=== PATIENT | male | born 1945 | race Caucasian/White ===

== ENCOUNTER → 2018-03-07 | Outpatient (CLI) | payer MEDICARE, OTHER ==
[2018-03-07 12:19] LABS: Basophils % (A) 1 %; Eosinophils # (A) 0.2 k/uL (0-0.7); Eosinophils % (A) 3 %; HCT 45.7 % (39.0-53.0); HGB 15.1 gm/dL (13.0-17.5); Lymphocytes # (A) 1.1 k/uL (1.0-4.8); Lymphocytes % (A) 20 %; MCH 30.3 pg (25.0-35.0); MCV 91.8 fL (80.0-100.0); Mean Platelet Volume 7.2; Monocytes # (A) 0.3 k/uL (0-1.0); Monocytes % (A) 6 %; Neutrophils # (A) 3.8 k/uL (1.3-7.7); Neutrophils % (A) 69 %; Platelet Count 157 k/uL (150-450); RBC 4.97 m/uL (4.30-5.90); RDW 13.5 % (11.5-15.5); WBC 5.5 k/uL (3.8-10.6)
[2018-03-07 12:23] LABS: INR 1.1 (<1.2); Prothrombin Time 10.4 sec (9.0-12.0)
[2018-03-07 12:29] LABS: Appearance,Urine Clear (Clear); Bilirubin,Urine Negative (Negative); Blood,Urine Negative (Negative); Color,Urine Yellow; Glucose,Urine (UA) Negative (Negative); Ketones,Urine Negative (Negative); Leukocyte Esterase,Urine Negative (Negative); Nitrite,Urine Negative (Negative); PH, Urine 5.5 (5.0-8.0); Protein,Urine Negative (Negative); Specific Gravity,Urine 1.019 (1.001-1.035); Urobilinogen,Urine <2.0 mg/dL (<2.0)
[2018-03-07 12:34] LABS: Calcium 8.6 mg/dL (8.4-10.2); Potassium 4.8 mmol/L (3.5-5.1)
--- NOTE | 2018-03-07 13:19 | XR ---
EXAMINATION TYPE: XR chest 2V DATE OF EXAM: 03/07/2018 COMPARISON: 03/13/2015 HISTORY: Preoperative evaluation. TECHNIQUE: Frontal and lateral views of the chest are obtained. FINDINGS: There is no focal air space opacity, pleural effusion, or pneumothorax seen. The cardiac silhouette size is within normal limits. The osseous structures are intact. Bilateral humeral arthr oplasties are present. Mild multilevel degenerative change of the thoracic spine is seen. IMPRESSION: No acute cardiopulmonary process.
== END | disposition home or self-care (01) ==
LOC: LABPAT 11:12
PROVIDERS: ATTEND Orthopaedic Surgery Orthopaedic Surgery of the Spine
DX: Z01.818 Encounter for other preprocedural examination (principal); Z01.812 Encounter for preprocedural laboratory examination; M48.061 Spinal stenosis, lumbar region without neurogenic claudication
CPT/HCPCS: 71046; 80048; 81003; 85025; 85610; 85730; 87070

== ENCOUNTER 2018-03-13 05:42 | Inpatient (IN) | payer MEDICARE, OTHER ==
[2018-03-06 13:14] VITALS: BMI 28.1
[~2018-03-13 05:42] MED LIST: BACITRACIN 50,000 UNIT, POLYMYXIN B 500,000 UNIT in SODIUM CHLORIDE 0.9% IRRIGATIO 1,00... IRRIGATION ONE; DEXAMETHASONE SOD PHOSPHATE 10 MG/ML 1 ML VIAL IV ONE; LIDOCAINE 1% 20 ML VIAL (10MG/ML) FOR IV START INTRADERMA PRN; MIDAZOLAM 2 MG/2 ML VIAL IV PRN; ONDANSETRON 4 MG/2 ML VIAL IVP ONE; ceFAZolin IN SWFI 2 GM/20 ML SYRINGE IVP ONE
[2018-03-13] MEDS ORDERED: fentaNYL (PF) 50 MCG/ML 2 ML AMP IV PRN (05:53)
[2018-03-13] MEDS ORDERED: ONDANSETRON 4 MG/2 ML VIAL IVP ONE (05:53)
[2018-03-13] MEDS ORDERED: LIDOCAINE 1% 20 ML VIAL (10MG/ML) FOR IV START INTRADERMA PRN (05:53)
[2018-03-13] MEDS ORDERED: MIDAZOLAM 2 MG/2 ML VIAL IV PRN (05:53)
[2018-03-13] MEDS ORDERED: DEXAMETHASONE SOD PHOSPHATE 10 MG/ML 1 ML VIAL IV ONE (05:53)
[2018-03-13] MEDS: LACTATED RINGERS 1,000 ML IV SCH ×3 (06:45→16:37)
[2018-03-13] MEDS ORDERED: ePHEDrine SULFATE/0.9% NACL/PF 50 MG/5 ML SYRINGE IV ONE (07:33)
[2018-03-13] MEDS ORDERED: ROCURONIUM BROMIDE 10 MG/ML 10 ML VIAL IV ONE (07:33)
[2018-03-13] MEDS ORDERED: HYDROmorphone (PF) 1 MG/ML ONE (07:33)
[2018-03-13] MEDS ORDERED: PROPOFOL 10 MG/ML 20 ML VIAL IV ONE (07:33)
[2018-03-13] MEDS ORDERED: fentaNYL (PF) 50 MCG/ML 2 ML AMP ONE (07:33)
[2018-03-13] MEDS ORDERED: MIDAZOLAM 2 MG/2 ML VIAL ONE (07:33)
[2018-03-13] MEDS ORDERED: GLYCOPYRROLATE 0.2 MG/ML 2 ML VIAL ONE (07:33)
[2018-03-13] MEDS ORDERED: SUCCINYLCHOLINE CHLORIDE 100 MG/5 ML SYR IV ONE (07:33)
[2018-03-13] MEDS ORDERED: LIDOCAINE 1% INJ 10MG/ML (20 ML MDV) ONE (07:33)
[2018-03-13] MEDS ORDERED: PHENYLEPHRINE-0.9% NACL SYG 1 MG/10 ML SYRINGE ONE (07:33)
[2018-03-13] MEDS ORDERED: LACTATED RINGERS 1,000 ML IV ONE ×2 (08:10→11:45)
[2018-03-13] MEDS ORDERED: THROMBIN (BOVINE) 5,000 UNIT VIAL MISCELLANE ONE (08:30)
[2018-03-13] MEDS ORDERED: BUPIVACAIN-EPI 0.5%-1:200,000 30 ML VIAL SQ ONE (08:31)
[2018-03-13] MEDS ORDERED: GELATIN SPONGE,ABSORB (LARGE) 1 EACH SPONGE MISCELLANE ONE (08:31)
[2018-03-13] MEDS ORDERED: MAGNESIUM HYDROXIDE 2,400 MG/10 ML CUP PO PRN (11:56)
[2018-03-13] MEDS ORDERED: BENZOCAINE/MENTHOL LOZENG 1 EACH LOZENGE MUCOUS MEM PRN (11:56)
[2018-03-13] MEDS ORDERED: HYDROcodone/APAP 5-325MG 1 EACH TAB PO PRN (11:56)
[2018-03-13] MEDS ORDERED: ZOLPIDEM 10 MG TAB PO PRN (11:58)
--- NOTE | 2018-03-13 12:07 | P.OP ---
Date of Procedure: 03/13/18 Preoperative Diagnosis: Spondylolisthesis L4 5, severe spinal stenosis L3 4 L4 5, degenerative disc disease, degenerative scoliosis, low back pain with lower extremity radiculopathy, neurogenic claudication, Postoperative Diagnosis: Same Anesthesia: GETA Pathology: none sent Condition: stable Disposition: PACU Description of Procedure: DESCRIPTION OF PROCEDURE(S): BRIEF OPERATIVE NOTE Preoperative Diagnosis: Spondylolisthesis L4 5, severe spinal stenosis L3 4 L4 5 , degenerative scoliosis, degenerative disc disease, low back pain with lower extremity radiculopathy, neurogenic claudication, Postoperative Diagnosis: Same Procedure: Laminectomy and decompression L3 4 L4 5 with foraminotomies and facetectomy Minimally invasive Posterior lateral decompression and facet fusion L3 4 L4 5 Minimally invasive Transforaminal lumbar interbody fusion for a 360 fusion L4 5 Discectomy for decompression L4 5 Placement of interbody graft L4 5 Local autogenous bone grafting Harvesting of bone marrow aspirate be of the pedicle of L3 on the right Use of Cell Saver Use of bone graft extenders Surgeon: Dr. Chiu Product Test Specialist: Marcin Pang is present throughout the entire the case persistence during positioning, dissection, exposure, visualization, and all crucial elements of the case as well as closure. Anesthesia: General anesthesia Estimated blood loss: Approximately 450 mL with 200 given back through Cell Saver Complications: None apparent Components implanted: K2M minimally invasive [place] pedicle screw system with 6 screws measuring 6.5 mm x 50 mm and 2 rods and 1 mm peek cage with 1 osteoamp sponge and 15 mL of DBX bone fibers to supplemental local otitis bone graft and bone marrow aspirate Disposition: To recovery room in good stable condition. OPERATIVE INDICATIONS The patient has had long-standing issues in their lower back and lower extremities. His found have degenerative scoliosis with spondylolisthesis and severe spinal stenosis which correlated well with his low back and lower extremity symptoms. He is having radiculopathy with neurogenic claudication and severe back pain which was worsening despite conservative care. The patient has been through conservative treatment. We discussed various treatment options including surgery, and the patient wishes to proceed with surgery We discussed the risk, patient's alternatives and benefits of surgery including but not limited to, risk of bleeding risk of infection, risk of need for further surgery, risk of decreased, loss of motion, muscle function, malunion nonunion, hardware failure, nerve damage, paralysis, heart attack, blindness and . OPERATIVE SUMMARY After discussing all the risks, patient alternatives and benefits at length, the patient elected to proceed with surgical intervention, signed informed consent, and presented for their procedure. The patient was seen and examined in the preoperative holding area and the surgical site was marked. The patient was given antibiotics and brought to the operating room. The patient was sedated and intubated by anesthesia in standard fashion. The patient was positioned on to the operating room table in a prone position on the appropriate frame which was well-padded and well molded. We were careful to pad any bony prominences and pressure points. We were careful to maintain the patient's cervical spine and good neutral alignment and position throughout. The patient was prepped and draped in a normal standard fashion. An appropriate timeout and keystone protocol performed. We were able to proceed with the surgery. The local wound area was infiltrated with local anesthetic. I was able utilize C-arm guidance to establish appropriate position over the pedicles bilaterally at the appropriate levels at L3 4 and 5. With the appropriate levels confirmed was able to make small stab incisions over the appropriate pedicle sites bilaterally. Utilizing C-arm in his house able to establish a Jamshidi needle over the lateral aspect of the pedicle and advanced the trocar into the pedicle being careful not to breech superiorly inferiorly medially or laterally. Position was confirmed regularly with AP and lateral images on C-arm. I was able to establish the trocar into the pedicle appropriately into the posterior aspect of the vertebral body bilaterally at the appropriate levels. This was done at each of the pedicle positions and each of the vertebrae. I was able place the guidewire into the trocar and into the vertebral body appropriately under C-arm guidance. Dissection was taken down over the wire to the appropriate starting position for the screw placed. The appropriate length screw was chosen, threaded over the guidewire and screwed appropriately into the pedicle and vertebral body under C-arm guidance in excellent alignment and position with good bony purchase. This is done at each of the screw sites at the appropriate levels at L3 4 and 5. With the screws intact I extended the incision to connect the screw hole sites on the most symptomatic side on the right. I dissected down to establish access over the pars and lamina to the base of the spinous process. I was able to expose the facet joint. The capsule the facet was taken down and showed some facet arthrosis at the joint. I was able to use a combination of curettes and Kerrison rongeurs and a high-speed drill to take down the facet joint and do a facetectomy. I started at L4-L5 and then moved L3 4. Partial laminectomy was also performed. I was able get excellent foraminal decompression and central decompression with undermining across midline to perform a laminectomy centrally and contralaterally. As able get good central decompression. The ligamentum flavum was taken down to further decompress centrally and at bilateral neural foramen. I was able to expose the disc space and visualize the traversing nerve root. At L4 5 I was able to establish the space of the disc at L4 5. At L3 4 there was bridging osteophyte and noted space and I was not able to access the disc space. At L4 5 Note was made of some disc protrusion at the level causing further compression of the nerve root. I was able to establish a annulotomy at the appropriate level protecting soft tissue and neural structures. Note was made of some disc desiccation at the disc. I performed a complete discectomy with accommodation of curettes and rasps and scrapers. I was able get good endplate preparation at the disc space. I sized for the appropriate size interbody spacer protecting the soft tissue and neural structures. The wound was copiously irrigated and suctioned dry. There is no evidence of any dural tear or leak. I was able to pack the disc space with local autogenous bone graft as well as a small amount of bone graft which was also placed into the interbody cage itself. Protecting the soft tissue structures and neural structures I was able place the interbody cage in good alignment and good position with good fit and fill at the interbody space. His issues was confirmed with C-arm guidance. I performed a interbody fusion at L4 5 but was unable to access the interbody space at L3 [address] and I did not place any his rotation of the interbody space L3 4. I felt we can get good posterior deep decompression and fusion at L3 4 and L4 5. Good hemostasis maintained. There is no evidence of any dural tear or leak. The wound was irrigated and suctioned dry. With the hardware intact, intraoperative C-arm imaging was again taken which showed good alignment and position of the hardware at the appropriate levels at L3 4 and 5 . We were then able to measure, contour and place the rods and appropriate hardware bilaterally. I was able to place capcrews, tighten them down, and torque them with the torque screwdriver appropriately. With this intact I was able to place the local autogenous bone graft with additional bone graft enhancer as necessary into the posterior lateral gutters over the decorticated transverse processes. The remainder of the bone graft was placed over the facet joint on the contralateral side after taking down the facet joint capsule. With the bone graft intact, a stable construct, and good decompression at the appropriate levels, of L3 4 and L4 5we were able to proceed with closure. Good hemostasis was maintained. There is no evidence of dural tear or leak. The fascia was closed for a watertight closure. he subcuticular tissue was closed with absorbable suture. The wound was cleaned and dried and dressed with the appropriate dressing. The drapes were broken down. The patient was gently rolled back onto their hospital bed being careful to maintain their cervical spine and good neutral alignment and position. They were woken up by anesthesia, extubated, and brought to the recovery room in good stable condition. The patient will be admitted to the hospital for appropriate postoperative care , medical management and monitoring. We will continue to follow them closely about the postoperative course.
--- NOTE | 2018-03-13 12:53 | FL ---
Fluoroscopy HISTORY: Lumbar fusion 2 minutes 45 seconds fluoroscopy time supplied to the referring clinician. 2 intraoperative C-arm im ages document the procedure. See dictated report from orthopedic surgery.
[2018-03-13] MEDS: fentaNYL (PF) 50 MCG/ML 2 ML AMP IV PRN ×3 (13:05→14:02)
[2018-03-13] MEDS: HYDROmorphone 0.5 MG/0.5 ML SYRINGE IVP PRN ×2 (14:52→21:10)
[2018-03-13] MEDS: HYDROcodone/APAP 5-325MG 1 EACH TAB PO PRN ×2 (15:50→20:36)
[2018-03-13] MEDS ORDERED: BACLOFEN 10 MG TAB PO PRN (17:01)
[2018-03-13] MEDS: ceFAZolin IN SWFI 2 GM/20 ML SYRINGE IVP SCH (17:26)
[2018-03-13] MEDS: SODIUM CHLORIDE 0.9% 1,000 ML IV SCH (18:40)
[2018-03-13] MEDS: ONDANSETRON 4 MG/2 ML VIAL IVP PRN (19:37)
[2018-03-13] MEDS ORDERED: ALBUTEROL NEBULIZED 2.5 MG/3 ML INHALATION PRN (21:49)
--- NOTE | 2018-03-13 22:21 | CONS ---
CONSULTATION DATE OF SERVICE: 03/13/2018. REASON FOR CONSULTATION: Advice regarding GERD, hypertension, DJD being requested by Dr. Chiu. HISTORY OF PRESENT ILLNESS: This 72-year-old gentleman with a past medical history of hypertension, DJD, history of prostate disease, history of GERD, history of anxiety being followed by Dr. Hollingsworth in the outpatient setting, underwent laminectomy decompression L3-4, 4-5 with a foraminectomy and facetectomy for severe spondylosis L4-5, severe spinal stenosis L3-4, L4-[address] Chiu. The patient complains of back pain and leg pain at this time. Otherwise there is no history of any fever, rigors. No history of any headache, loss of consciousness, seizures. Patient also complains of some groin pain also. No history of any nausea, vomiting, diarrhea at this time. PAST MEDICAL HISTORY: History of hypertension, DJD, history of prostate disorder, history of hypothyroidism, hernia repair. MEDICATIONS PRIOR TO ADMISSION: Include home medications are: 1. Ambien 10 mg p.o. q.h.s. p.r.n. 2. Flomax 0.4 daily. 3. Ditropan XL 15 mg b.i.d. 4. Omeprazole 20 mg p.o. daily. 5. Singulair 10 mg p.o. daily. 6. Mobic 15 mg p.o. daily. 7. Levoxyl 100 mg p.o. daily. 8. Neurontin 300 mg p.o. t.i.d. 9. Proscar 5 mg p.o. daily. 10.Rocaltrol 0.5 mg daily. 11.Tenormin 25 mg p.o. daily. 12.Aspirin 320 mg. 13.Ventolin 2.5 every 6 hours p.r.n. ALLERGIES: None. FAMILY HISTORY: History of myocardial infarction in the family. SOCIAL HISTORY: No history of smoking. Occasional alcohol intake. REVIEW OF SYSTEMS: ENT: No diminished hearing, diminished vision. CARDIOVASCULAR: No angina, palpitations. RESPIRATORY: No cough or hemoptysis. GI: No nausea or vomiting. : No dysuria. NERVOUS: No numbness or weakness. ALLERGY/IMMUNOLOGY: No asthma or hay fever. MUSCULOSKELETAL: As mentioned earlier. HEMATOLOGY/ONCOLOGY: No history of anemia. ENDOCRINE: No history of diabetes, hypothyroidism. CONSTITUTIONAL: As mentioned earlier. DERMATOLOGY: Negative. RHEUMATOLOGY: Negative. PSYCHIATRY: As mentioned earlier. PHYSICAL EXAMINATION: Alert, oriented x3. Pulse 80, blood pressure 150/98, respirations 16, temperature 97.6, pulse ox 92% on room air. HEENT: Conjunctivae normal. Oral mucosa moist. NECK: No jugular venous distention. No carotid bruits. No lymph node enlargement. CARDIOVASCULAR: S1, S2 muffled. RESPIRATORY: Breath sounds diminished in the bases. No rhonchi. No crackles. ABDOMEN: Soft, nontender. LEGS: No edema. NERVOUS SYSTEM: No focal deficits. BACK: Status post surgery. LABS: CBC, BMP, the preop within normal limits. ASSESSMENT: 1. Status post laminectomy decompression L3-4, L4-5 for severe spondylosis L4-5 with severe spinal stenosis L3-4 and L4-5. 2. Gastroesophageal reflux disease. 3. Hypertension. 4. History of degenerative joint disease. 5. History of hypothyroidism. 6. History of stomach ulcer. 7. Hernia surgery. RECOMMENDATIONS AND DISCUSSION: In this 72-year-old gentleman who presented after surgery. At this time, I recommend to continue current medical management and symptomatic treatment. Otherwise, resume the home medications. I would also recommend proton pump inhibitors. Otherwise, incentive spirometry, DVT prophylaxis. We will follow the patient closely with you. Pain management per Orthopedics and Anesthesia and further recommendations to follow. MMENDY / NEILN: [id number] /
[2018-03-13] MEDS: GABAPENTIN 300 MG CAP PO SCH (22:25)
[2018-03-14] MEDS: ceFAZolin IN SWFI 2 GM/20 ML SYRINGE IVP SCH (00:25)
[2018-03-14] MEDS: HYDROmorphone 1 MG/ML 1 ML SYRINGE IVP PRN ×7 (00:25→23:39)
[2018-03-14] MEDS: HYDROcodone/APAP 5-325MG 1 EACH TAB PO PRN ×3 (02:32→10:06)
[2018-03-14] MEDS: LACTATED RINGERS 1,000 ML IV SCH (04:21)
[2018-03-14] MEDS: SODIUM CHLORIDE 0.9% 1,000 ML IV SCH ×2 (04:21→16:57)
[2018-03-14] MEDS: LEVOTHYROXINE 100 MCG TAB PO SCH (05:45)
[2018-03-14 07:12] LABS: Basophils % (A) 0 %; Eosinophils % (A) 0 %; HCT 41.2 % (39.0-53.0); HGB 13.6 gm/dL (13.0-17.5); Lymphocytes # (A) 0.5 k/uL (1.0-4.8); Lymphocytes % (A) 5 %; MCH 30.5 pg (25.0-35.0); MCV 92.4 fL (80.0-100.0); Mean Platelet Volume 7.4; Monocytes # (A) 0.7 k/uL (0-1.0); Monocytes % (A) 6 %; Neutrophils # (A) 10.1 k/uL (1.3-7.7); Neutrophils % (A) 89 %; Platelet Count 130 k/uL (150-450); RBC 4.46 m/uL (4.30-5.90); RDW 13.4 % (11.5-15.5); WBC 11.4 k/uL (3.8-10.6)
[2018-03-14 07:23] LABS: Calcium 7.8 mg/dL (8.4-10.2); Potassium 4.1 mmol/L (3.5-5.1)
[2018-03-14] MEDS ORDERED: PANTOPRAZOLE 40 MG TABLET PO SCH (07:30)
--- NOTE | 2018-03-14 07:57 | XR ---
EXAMINATION TYPE: XR lumbar spine 2 or 3V DATE OF EXAM: 03/13/2018 COMPARISON: None HISTORY: Lumbar fusion TECHNIQUE: Fluoroscopy FINDINGS: 2 minutes 45 seconds of fluoroscopy time was provided for procedure. 2 images are obtained. IMPRESSION: 1. Fluoroscopy documentation
[2018-03-14] MEDS: ATENOLOL 25 MG TAB PO SCH (08:22)
[2018-03-14] MEDS: MONTELUKAST 10 MG TAB PO SCH (08:22)
[2018-03-14] MEDS: TAMSULOSIN 0.4 MG CAP.ER.24H PO SCH (08:22)
[2018-03-14] MEDS: SENNOSIDES-DOCUSATE SODIUM 1 EACH TAB PO SCH (08:22)
[2018-03-14] MEDS: GABAPENTIN 300 MG CAP PO SCH ×3 (08:22→22:53)
[2018-03-14] MEDS: ASPIRIN 325 MG TAB PO SCH (08:22)
[2018-03-14] MEDS: FINASTERIDE 5 MG TAB PO SCH (08:22)
[2018-03-14] MEDS: CALCITRIOL 0.25 MCG CAP PO SCH (10:07)
[2018-03-14] MEDS: OXYBUTYNIN 15 MG TAB.ER.24 PO SCH (10:09)
[2018-03-14] MEDS: ONDANSETRON 4 MG/2 ML VIAL IVP PRN ×2 (11:02→15:58)
--- NOTE | 2018-03-14 11:05 | P.PN ---
Progress Note - Text Progress Note Date: 03/14/18 Postoperative day #1 Patient is seen and examined today at bedside. The patient has some pain around the surgical site as expected. Pain is being controlled with medication. He has been up to the bathroom is able to void. His pain is controlled with medication. He had some nausea but no vomiting. Physical Exam Afebrile with stable vital signs Abdomen is soft nontender. Chest has good excursion deep and space expiration The incision site is clean dry and intact. No erythema there is no purulence. There was some small bloody drainage on his dressing but there is no active drainage. There is some mild swelling but no tension at the area Extremities have not had neurologic change from prior to surgery. He has sustained dorsal flexion plantar flexion and EHL intact Calves and thighs were soft nontender without evidence of DVT. Assessment/Plan Postoperative day 1 status post decompression and fusion done minimally invasive at L34 and L4 5 for his severe spinal stenosis with degenerative scoliosis and spondylolisthesis Patient is progressing as expected from the surgery. he has already been up out of bed to the bathroom. There is some mild swelling but his back looks very stable. We will see if he has some benefit with a cold pack for his back for pain We will continue to increase the patient's mobilization with therapy. We will continue pain control with oral or IV medications. We'll continue to follow patient closely.
--- NOTE | 2018-03-14 13:18 | XR ---
EXAMINATION TYPE: XR abdomen 2V DATE OF EXAM: 03/14/2018 COMPARISON: None INDICATION: Postsurgical lumbar surgery, abdominal distention TECHNIQUE: Two view abdomen upright view and supine view FINDINGS: There is prominent air-filled colon within the abdomen. Correlate for colonic ileus. Suspicious air-f luid levels are not identified. No free air is evident. Psoas margins are normal. No organomegaly is present. Pedicles are present L4 L5 S1 levels. Changes are at left hip. No mass effect is evident. Organomegal y. Air-filled colon anterior to the liver. IMPRESSION: 1. Prominent colonic bowel gas. Correlate for colonic ileus
[2018-03-14] MEDS ORDERED: METOCLOPRAMIDE 5 MG/ML 2 ML VIAL IVP PRN (16:17)
[2018-03-14] MEDS ORDERED: HYDROmorphone 1 MG/ML 1 ML SYRINGE IVP PRN ×2 (16:19)
--- NOTE | 2018-03-14 16:48 | PN ---
PROGRESS NOTE DATE OF SERVICE: 03/14/2018 This 72 -year-old gentleman who was admitted with laminectomy and decompression is improving significantly. No chest pain. No palpitations. No fever. PHYSICAL EXAM: Alert and oriented times three. Pulse 89, blood pressure 115/66, respiration 18, temperature 98 degrees, pulse ox 93 percent on room air. HEENT: Conjunctivae normal. Oral mucosa moist. Neck is no jugular venous distention. No carotid bruit. No lymph node enlargement. Cardiovascular: S1, S2 muffled. RESPIRATORY: Breath sounds diminished in the bases. A few scattered rhonchi. ABDOMEN: Soft, nontender. Legs no edema. No swelling. Back: Status post surgery. LABS: WBC 7.4, platelets 130, calcium 7.8. ASSESSMENT: 1. Status post laminectomy decompression L3-4, L4-5 for severe spondylosis, spondylolisthesis L4-5 with severe spinal stenosis, L3-4 and L4-5. 2. Gastroesophageal reflux disease. 3. Hypertension. 4. Increased WBC, reactive. 5. Thrombocytopenia mild. 6. History of degenerative joint disease. 7. History of hypothyroidism. 8. Stomach ulcer. 9. History of hernia surgery. RECOMMENDATIONS AND DISCUSSION: Continue current medications, management and symptomatic treatment. Otherwise, at this time, I recommend continue the pain medications, continue with symptomatic treatment. I recommend repeat labs and monitor the platelets closely. Otherwise, continue the DVT prophylaxis. Continue with incentive spirometry. Closely follow with Orthopedic surgery. The rest of the recommendations per Orthopedic surgery. MMODL / IJN: [id number] /
[2018-03-14] MEDS ORDERED: POLYETHYLENE GLYCOL 3350 17 GM POWD.PACK PO STA (19:08)
[2018-03-14] MEDS ORDERED: SENNOSIDES 8.6 MG TAB PO PRN ×2 (19:11→22:49)
[2018-03-14] MEDS: PANTOPRAZOLE 40 MG/10 ML VIAL IVP SCH (20:42)
[2018-03-14] MEDS ORDERED: SODIUM CHLORIDE 0.9% 1,000 ML IV ONE (23:38)
[2018-03-15] MEDS: HYDROmorphone 1 MG/ML 1 ML SYRINGE IVP PRN ×5 (01:56→21:21)
[2018-03-15] MEDS: SODIUM CHLORIDE 0.9% 1,000 ML IV SCH ×2 (03:10→15:38)
[2018-03-15] MEDS: LACTATED RINGERS 1,000 ML IV SCH ×2 (03:10→12:07)
[2018-03-15] MEDS: LEVOTHYROXINE 100 MCG TAB PO SCH (05:22)
[2018-03-15 07:45] LABS: Basophils % (A) 0 %; Eosinophils % (A) 0 %; HCT 38.8 % (39.0-53.0); Lymphocytes # (A) 0.6 k/uL (1.0-4.8); Lymphocytes % (A) 4 %; MCHC 33.5 g/dL (31.0-37.0); MCV 92.6 fL (80.0-100.0); Mean Platelet Volume 7.2; Monocytes # (A) 0.8 k/uL (0-1.0); Monocytes % (A) 6 %; Neutrophils # (A) 11.6 k/uL (1.3-7.7); Neutrophils % (A) 88 %; Platelet Count 123 k/uL (150-450); RBC 4.19 m/uL (4.30-5.90); RDW 13.4 % (11.5-15.5); WBC 13.2 k/uL (3.8-10.6)
[2018-03-15] MEDS: SENNOSIDES-DOCUSATE SODIUM 1 EACH TAB PO SCH (08:31)
[2018-03-15] MEDS: ATENOLOL 25 MG TAB PO SCH (08:31)
[2018-03-15] MEDS: PANTOPRAZOLE 40 MG/10 ML VIAL IVP SCH ×2 (08:31→21:22)
[2018-03-15] MEDS: TAMSULOSIN 0.4 MG CAP.ER.24H PO SCH (08:31)
[2018-03-15] MEDS: FINASTERIDE 5 MG TAB PO SCH (08:31)
[2018-03-15] MEDS: GABAPENTIN 300 MG CAP PO SCH ×3 (08:31→21:22)
[2018-03-15] MEDS: OXYBUTYNIN 15 MG TAB.ER.24 PO SCH (08:31)
[2018-03-15] MEDS: MONTELUKAST 10 MG TAB PO SCH (08:31)
[2018-03-15] MEDS: CALCITRIOL 0.25 MCG CAP PO SCH (08:31)
[2018-03-15] MEDS: ASPIRIN 325 MG TAB PO SCH (08:31)
--- NOTE | 2018-03-15 08:39 | P.PN ---
Progress Note - Text Progress Note Date: 03/15/18 Orthopedic Spine: Patient is a pleasant 72-year-old male who is seen and examined at the bedside following posterior lateral decompression and fusion performed Sunday. Patient was able to increase ambulation early but has decreased his ambulation since yesterday after being diagnosed with constipation and possible colonic ileus. He was having some abdominal pain yesterday afternoon and an x-ray of the abdomen and pelvis was performed which showed prominent colonic bowel gas and correlate for colonic ileus. Patient states he does not usually have difficulty having a bowel movement or with his abdomen. He continues to have significant abdominal pain. Medicine has been treating the patient and has altered his diet. They have also added milk of magnesia and Senokot. Patient states he has not had a bowel movement and is not currently passing gas. He feels abdominal pain and distention. He is not currently receiving oral pain medications. He continues to receive Dilaudid IV as prescribed as needed symptoms. He has had some nausea this morning as well. Currently does not complain of vomiting, fever, or chills. Physical Exam Lumbar Fusion: Status post surgical day number 2 Patient is awake, alert, and oriented 3 Vital signs stable Good chest excursion with deep inspiration and expiration Abdomen firm and distended with some pain with palpation Dorsiflexion, plantarflexion, and extensor hallucis longus positive sustained bilaterally No signs or symptoms of DVT; no calf pain; pneumatic cuffs intact bilateral lower extremities Dressing is dry and intact with some dried blood over the incision sites greater on the left than the right; no erythema, purulence, or signs of infection Neurovascularly intact bilaterally lower extremities Pertinent studies: X-rays the abdomen taken on 03/14/2018: Prominent air-filled: Within the abdomen correlate for colonic ileus; no evidence of free air; evidence of pedicle screws at L3-4 and L4-5 Assessment: Minimally invasive posterior lateral decompression and fusion L3-4 and L4-5 Transforaminal lumbar interbody fusion L4-5 Low back pain Constipation Abdominal pain and distention Plan: 1. Ambulate as tolerated; work with Physical Therapy to increase mobilization 2. Continue pain control with IV medications; oral pain medications will be held until patient's abdominal pain and distention improves 3. Telfa and Tegaderm to remain intact 4. Medical management can continue to manage patient for patient's other medical issues including abdominal pain and distention with constipation 5. We will continue to follow the patient closely; if the patient is able to improve in regards to his abdominal pain and distention with constipation and makes improvement in regards to his lumbar spine postoperatively, we may plan for discharge home over the weekend 6. Patient can follow-up with Marcin Sabillon PA-C or Dr. Mauro Chiu at [facility] in 2-3 weeks following discharge
[2018-03-15 14:34] LABS: Albumin 3.1 g/dL (3.5-5.0); Calcium 7.6 mg/dL (8.4-10.2); Magnesium 1.6 mg/dL (1.6-2.3); Potassium 3.7 mmol/L (3.5-5.1); Total Bilirubin 0.9 mg/dL (0.2-1.3); Total Protein 5.8 g/dL (6.3-8.2)
[2018-03-15] MEDS ORDERED: BISACODYL 10 MG SUPP RECTAL STA (14:43)
--- NOTE | 2018-03-15 14:53 | P.GSCN ---
<Shana Garcia Meli - Last Filed: 03/15/18 14:46> History of Present Illness Consult date: 03/15/18 Reason for Consult: Abdominal pain possible ileus postop History of present illness: Pleasant 72-year-old gentleman being seen by surgical service at the request of the attending after patient developed difficulty having a bowel movement postop developed constipation with an abdominal x-ray suggestive of an ileus patient stated that he has had prior surgeries has never developed constipation. Constipation is not a problem at home. Does state that his last bowel movement was probably a week ago patient's past medical history hypertension, prostate disease, esophageal reflux, anxiety. Severe Spinal stenosis . Patient is postop laminectomy decompression L3 L4 L5 surgery was done on the 13 of March patient is being given a stool softener MiraLAX with no results. Patient states he's passing gas rectally but no stool Review of Systems Essentially unremarkable except as mentioned in the present illness Past Medical History Past Medical History: GERD/Reflux, Hypertension, Osteoarthritis (OA), Prostate Disorder, Thyroid Disorder Additional Past Medical History / Comment(s): hx bleeding stomach ulcer, "arrhthymia" History of Any Multi-Drug Resistant Organisms: None Reported Past Surgical History: Hernia Repair, Orthopedic Surgery, Tonsillectomy Additional Past Surgical History / Comment(s): bilat shoulders replacements, bilat knees replacement, thyroid removed, sinus surgery Past Anesthesia/Blood Transfusion Reactions: Previous Problems w/ Anesthesia Additional Past Anesthesia/Blood Transfusion Reaction / Comm: slow to wake up and n/v after sinus surgery Past Psychological History: No Psychological Hx Reported Smoking Status: Never smoker Past Alcohol Use History: Occasional Past Drug Use History: None Reported - Past Family History Brother(s) Family Medical History: Myocardial Infarction (NH) Medications and Allergies Home Medications Medication Instructions Recorded Confirmed Type Aspirin 325 mg PO DAILY 03/13/15 03/13/18 History Atenolol [Tenormin] 25 mg PO DAILY 03/13/15 03/13/18 History Meloxicam [Mobic] 15 mg PO DAILY 03/13/15 03/13/18 History Montelukast [Singulair] 10 mg PO DAILY 03/13/15 03/13/18 History Oxybutynin Chloride [Ditropan XL] 15 mg PO DAILY 03/13/15 03/13/18 History Tamsulosin HCl [Flomax] 0.4 mg PO DAILY 03/13/15 03/13/18 History Zolpidem [Ambien] 10 mg PO HS PRN 03/13/15 03/13/18 History Calcitriol [Rocaltrol] 0.5 mcg PO DAILY 03/06/18 03/13/18 History Finasteride [Proscar] 5 mg PO DAILY 03/06/18 03/13/18 History Gabapentin [Neurontin] 300 mg PO TID 03/06/18 03/13/18 History Levothyroxine Sodium [Levoxyl] 100 mcg PO DAILY 03/06/18 03/13/18 History Omeprazole 20 mg PO DAILY 03/06/18 03/13/18 History Albuterol Nebulized [Ventolin 2.5 mg INHALATION RT-Q6H PRN 03/13/18 03/13/18 History Nebulized] Allergies Allergy/AdvReac Type Severity Reaction Status Date / Time No Known Allergies Allergy Verified 03/13/18 12:10 Surgical - Exam Vital Signs Temp Pulse Resp BP Pulse Ox 980 F H 68 18 133/76 95 03/13/18 06:23 03/13/18 06:23 03/13/18 06:23 03/13/18 06:23 03/13/18 06:23 GENERAL APPEARANCE: 72-year-old male patient is alert, oriented, in no acute distress. Resting in bed states has been up ambulating with a walker VITAL SIGNS: Reviewed HEENT: Head is normocephalic and atraumatic. Pupils are equal and reactive. The nares are patent. Oropharynx is clear without lesions. NECK: Supple without lymphadenopathy. Traches midline. HEART: S1, S2. Regular rate and rhythm. No murmur noted denying chest pain LUNGS: No crackles or wheezes are heard. Adequate air movement bilaterally on room air ABDOMEN: Soft, mildly distended with diffuse tenderness a few active bowel sounds. No peritoneal signs. No palpable organomegaly or masses. EXTREMITIES: Normal skin color and turgor. No cyanosis, rash, ulceration, clubbing or edema. Radial pedal pulses are 2/4 bilaterally. Venodyne's on to the lower extremity NEUROLOGICAL: No focal deficits. Strength and sensation are grossly intact. Results - Labs 03/15/18 07:14 03/15/18 07:14 Abnormal Lab Results - Last 24 Hours (Table) 03/15/18 Range/Units 07:14 WBC 13.2 H (3.8-10.6) k/uL RBC 4.19 L (4.30-5.90) m/uL Hct 38.8 L (39.0-53.0) % Plt Count 123 L (150-450) k/uL Neutrophils # 11.6 H (1.3-7.7) k/uL Lymphocytes # 0.6 L (1.0-4.8) k/uL Assessment and Plan Assessment: Impression Chronic lower back pain Postop March 13 laminectomy decompression L3 L4 L5 with foraminotomies Severe spinal stenosis Leukocytosis suspect reactive Esophageal reflux disease Thrombocytopenia mild history of a hernia repair X-ray postop March 19 prominent air-filled correlate for colonic ileus no evidence of free air Postop constipation with abdominal x-ray suggestive of an ileus Postop urinary retention expected outcome likely due to anesthesia and BPH History of BPH Plan No evidence of an acute surgical abdomen at this time Dulcolax suppository rectal times once now Reglan 10 IV every 6 hours until stooling since stopped Continue MiraLAX and stool softener as ordered Increase activity per orthopedic guideline Will follow with you Surgical consultation note dictated for Dr. Castellano The above impression and plan of care have been discussed and directed by signing physician. Shana Garcia nurse practitioner acting as scribe for signing physician. <Anni Coates N - Last Filed: 03/15/18 19:41> Surgical - Exam Vital Signs Temp Pulse Resp BP Pulse Ox 980 F H 68 18 133/76 95 03/13/18 06:23 03/13/18 06:23 03/13/18 06:23 03/13/18 06:23 03/13/18 06:23 Results - Labs 03/15/18 07:14 03/15/18 07:14 Abnormal Lab Results - Last 24 Hours (Table) 03/15/18 03/15/18 03/15/18 Range/Units 07:14 07:14 19:00 WBC 13.2 H (3.8-10.6) k/uL RBC 4.19 L (4.30-5.90) m/uL Hct 38.8 L (39.0-53.0) % Plt Count 123 L (150-450) k/uL Neutrophils # 11.6 H (1.3-7.7) k/uL Lymphocytes # 0.6 L (1.0-4.8) k/uL Sodium 135 L (137-145) mmol/L Glucose 127 H (74-99) mg/dL Calcium 7.6 L (8.4-10.2) mg/dL Total Protein 5.8 L (6.3-8.2) g/dL Albumin 3.1 L (3.5-5.0) g/dL Urine Protein 1+ H (Negative) Urine Blood Moderate H (Negative) Urine RBC 7 H (0-5) /hpf Urine Mucus Rare H (None) /hpf Diabetes panel 03/15/18 Range/Units 07:14 Sodium 135 L (137-145) mmol/L Potassium 3.7 (3.5-5.1) mmol/L Chloride 104 (98-107) mmol/L Carbon Dioxide 23 (22-30) mmol/L BUN 18 (9-20) mg/dL Creatinine 1.02 (0.66-1.25) mg/dL Glucose 127 H (74-99) mg/dL Calcium 7.6 L (8.4-10.2) mg/dL AST 40 (17-59) U/L ALT 35 (21-72) U/L Alkaline Phosphatase 51 (38-126) U/L Total Protein 5.8 L (6.3-8.2) g/dL Albumin 3.1 L (3.5-5.0) g/dL Calcium panel 03/15/18 Range/Units 07:14 Calcium 7.6 L (8.4-10.2) mg/dL Albumin 3.1 L (3.5-5.0) g/dL Pituitary panel 03/15/18 Range/Units 07:14 Sodium 135 L (137-145) mmol/L Potassium 3.7 (3.5-5.1) mmol/L Chloride 104 (98-107) mmol/L Carbon Dioxide 23 (22-30) mmol/L BUN 18 (9-20) mg/dL Creatinine 1.02 (0.66-1.25) mg/dL Glucose 127 H (74-99) mg/dL Calcium 7.6 L (8.4-10.2) mg/dL Adrenal panel 03/15/18 Range/Units 07:14 Sodium 135 L (137-145) mmol/L Potassium 3.7 (3.5-5.1) mmol/L Chloride 104 (98-107) mmol/L Carbon Dioxide 23 (22-30) mmol/L BUN 18 (9-20) mg/dL Creatinine 1.02 (0.66-1.25) mg/dL Glucose 127 H (74-99) mg/dL Calcium 7.6 L (8.4-10.2) mg/dL Total Bilirubin 0.9 (0.2-1.3) mg/dL AST 40 (17-59) U/L ALT 35 (21-72) U/L Alkaline Phosphatase 51 (38-126) U/L Total Protein 5.8 L (6.3-8.2) g/dL Albumin 3.1 L (3.5-5.0) g/dL
[2018-03-15] MEDS: METOCLOPRAMIDE 5 MG/ML 2 ML VIAL IVP SCH ×2 (15:39→18:07)
--- NOTE | 2018-03-15 17:56 | PN ---
PROGRESS NOTE DATE OF SERVICE: 03/15/2018 This 72-year-old gentleman admitted after back surgery is being closely monitored at this time. The patient has abdomen distention, some constipation also. The colonic ileus was suspected from the x-rays. No chest pain. No palpitations. PHYSICAL EXAM: Alert and oriented x2. Pulse 89, blood pressure 120/62, respirations 16, temperature 98.2, pulse ox 94 percent on room air. HEENT: Conjunctivae normal. Oral mucosa moist. Neck is no jugular venous distention. No carotid bruit. No lymph node enlargement. Cardiovascular: S1, S2 muffled. Breath sounds diminished in the bases. No rhonchi. No crackles. ABDOMEN: Soft, mild diffuse distention present. No guarding. No rigidity. No mass palpable. Bowel sounds diminished. Legs: No edema. No swelling. Central nervous system: No focal deficits. Examination of the back status post surgery. LABS: WBC 13.2, hemoglobin 13. REVIEW OF SYSTEMS: Cardiovascular: No angina or palpitations. Respiratory: As mentioned earlier. GI: As mentioned earlier. : No dysuria. Central nervous system: No numbness or weakness. CURRENT MEDICATIONS: 1. Page 5 mg q.4h p.r.n. 2. Ventolin. 3. Aspirin 320 mg. 4. Tenormin 25 mg. 5. Lioresal 10 mg t.i.d. p.r.n. 6. Cepacol. 7. Rocaltrol. 8. Proscar. 9. Neurontin 300 mg t.i.d. 10.Dilaudid. 11.Synthroid. 12.Milk of magnesia. 13.Reglan. 14.Zofran. 15.Protonix. 16.Senokot-S. 17.Flomax. 18.Ambien. FINAL DIAGNOSIS ASSESSMENT: 1. Status post laminectomy decompression L3-4, L4-5 for severe spondylosis, spondylolisthesis L4-5 with severe spinal stenosis L3-4 and L4-5. 2. Gastroesophageal reflux disease. 3. Hypertension. 4. Increased WBC, reactive possibly. 5. Abdominal distention, ileus, possibly colonic ileus. 6. Thrombocytopenia mild. 7. History of degenerative joint disease. 8. Hypothyroidism. 9. History of hernia surgery. RECOMMENDATIONS AND DISCUSSION: Recommend to continue current medications, management and symptomatic treatment. Otherwise, I recommend proton pump inhibitors and also surgical evaluation also. Continue the DVT prophylaxis and further recommendations to follow. I would also recommend repeat labs also. See orders for details. Further recommendations to follow. MMODL / IJN: [id number] /
[2018-03-15 19:15] LABS: Appearance,Urine Clear (Clear); Bilirubin,Urine Negative (Negative); Blood,Urine Moderate (Negative); Color,Urine Yellow; Glucose,Urine (UA) Negative (Negative); Ketones,Urine Negative (Negative); Leukocyte Esterase,Urine Negative (Negative); Mucus,Urine Rare /hpf; Nitrite,Urine Negative (Negative); Protein,Urine 1+ (Negative); RBC,Urine 7 /hpf (0-5); Specific Gravity,Urine 1.016 (1.001-1.035); Urobilinogen,Urine <2.0 mg/dL (<2.0); WBC,Urine 3 /hpf (0-5)
--- NOTE | 2018-03-15 19:42 | P.PN ---
Progress Note - Text Progress Note Date: 03/15/18 Patient re-evaluated this evening. He reports small passage of bowel movement with flatus. Continue GI management.
[2018-03-16] MEDS: METOCLOPRAMIDE 5 MG/ML 2 ML VIAL IVP SCH ×5 (01:13→23:31)
[2018-03-16] MEDS: SODIUM CHLORIDE 0.9% 1,000 ML IV SCH ×3 (01:13→22:16)
[2018-03-16] MEDS: HYDROmorphone 1 MG/ML 1 ML SYRINGE IVP PRN ×7 (01:14→22:12)
[2018-03-16] MEDS: LEVOTHYROXINE 100 MCG TAB PO SCH (06:01)
[2018-03-16 07:17] LABS: Basophils % (A) 0 %; Eosinophils % (A) 0 %; HCT 37.5 % (39.0-53.0); Lymphocytes # (A) 0.7 k/uL (1.0-4.8); Lymphocytes % (A) 7 %; MCV 93.6 fL (80.0-100.0); Mean Platelet Volume 7.1; Monocytes # (A) 0.6 k/uL (0-1.0); Monocytes % (A) 7 %; Neutrophils % (A) 84 %; Platelet Count 125 k/uL (150-450); RBC 4.01 m/uL (4.30-5.90); RDW 13.6 % (11.5-15.5); WBC 9.5 k/uL (3.8-10.6)
[2018-03-16 07:32] LABS: Calcium 7.5 mg/dL (8.4-10.2); Potassium 4.1 mmol/L (3.5-5.1)
[2018-03-16] MEDS: TAMSULOSIN 0.4 MG CAP.ER.24H PO SCH (09:42)
[2018-03-16] MEDS: ASPIRIN 325 MG TAB PO SCH (09:43)
[2018-03-16] MEDS: GABAPENTIN 300 MG CAP PO SCH ×3 (09:43→22:13)
[2018-03-16] MEDS: PANTOPRAZOLE 40 MG/10 ML VIAL IVP SCH ×2 (09:43→22:13)
[2018-03-16] MEDS: ATENOLOL 25 MG TAB PO SCH (09:43)
[2018-03-16] MEDS: SENNOSIDES-DOCUSATE SODIUM 1 EACH TAB PO SCH (09:43)
[2018-03-16] MEDS: FINASTERIDE 5 MG TAB PO SCH (09:43)
[2018-03-16] MEDS: MONTELUKAST 10 MG TAB PO SCH (09:43)
[2018-03-16] MEDS: CALCITRIOL 0.25 MCG CAP PO SCH (09:44)
--- NOTE | 2018-03-16 10:07 | P.PN ---
Progress Note - Text Progress Note Date: 03/16/18 Postoperative day #3 Patient is seen and examined today at bedside. The patient has some pain around the surgical site as expected but he is mobilizing adequately in the room and getting in and out of bed on his own. Pain is being controlled with medication. He was able have bowel movements yesterday. He is having improvement in his stomach and is not nauseous or vomiting. He had a Chong catheter reinitiated yesterday evening due to some difficulty with his urinating. Physical Exam Afebrile with stable vital signs Abdomen is soft nontender. He does not have any any abdominal distention this morning. His abdomen soft. Chest has good excursion deep and space expiration The incision site is clean dry and intact. No erythema there is no purulence. There is some bloody drainage on the dressing but there is no active drainage. There is no purulence. Extremities have not had neurologic change from prior to surgery. He has sustained dorsal to plantar flexion and EHL intact. Calves and thighs were soft nontender without evidence of DVT. Assessment/Plan Postoperative day #3 status post minimally invasive decompression and fusion L3 4 L4 5 for severe spinal stenosis and spondylolisthesis with disc degeneration neurogenic claudication and radiculopathy. Patient is progressing somewhat slowly from the surgery. His abdominal issues seem to be improving adequately as he has been able have a bowel movement with his stool softeners. He is no longer nauseous or having any vomiting. He feels his abdomen has improved postoperatively. I think that he had issues with chronic ileus and this does not seem to be a specific complication of surgery He has a Chong catheter intact. He is having some issues with pressure at his abdomen and with being able to void Chong. This may been due to his other abdominal issues as well and does not specifically seem related to his surgery. They can continue the Chong management as per medicine. He will likely have it discontinued after adequate bladder rest, possibly later today. We will continue to increase the patient's mobilization with therapy. We will continue pain control with oral or IV medications. Now that he has had a bowel movement we'll see how he does with his urination after the Chong comes out as per medicine. If he is mobile and tolerating his diet he may be will be discharged home tomorrow. We'll continue to follow patient closely.
[2018-03-16] MEDS: LACTATED RINGERS 1,000 ML IV SCH (10:31)
[2018-03-16] MEDS: OXYBUTYNIN 15 MG TAB.ER.24 PO SCH (10:40)
--- NOTE | 2018-03-16 12:43 | P.PN ---
Subjective Progress Note Date: 03/16/18 Principal diagnosis: Status post laminectomy decompression surgery L3-L4, L4-L5 for severe spondylosis Mr. Kaminski is a 72-year-old male admitted for elective laminectomy due to chronic low back pain currently being monitored after the surgery. Patient is currently lying in bed appears to be in no acute distress. Patient had complained of abdominal distention and constipation yesterday and abdominal x-rays revealed ileus. Patient did have a bowel movement last night and has been passing gas and has been tolerating liquid diet since this morning. On review of systems: Patient denies having any fevers chills or rigors. No complaints of chest pain palpitations. No cough difficulty in breathing. Patient's Chong's catheter was discontinued and he was given a voiding t trial that he failed. So Chong's catheter was placed again last night. Objective - Vital Signs Vital signs: Vital Signs Temp 98.3 F 03/16/18 07:56 Pulse 101 H 03/16/18 07:56 Resp 16 03/16/18 07:56 BP 157/88 03/16/18 07:56 Pulse Ox 93 L 03/16/18 07:56 Intake & Output 03/15/18 03/16/18 03/16/18 18:59 06:59 18:59 Intake Total 100 2500 Output Total 700 1025 Balance -600 1475 Intake: Intake, IV Titration 1600 Amount Sodium Chloride 0.9% 1, 1600 000 ml @ 100 mls/hr IV . Q10H [facility] Rx#:[id number] Oral 100 900 Output: Urine 700 1025 Straight 700 Other: Voiding Method Indwelling Catheter Indwelling Catheter # Bowel Movements 1 - Exam Head -conjunctiva normal oral mucosa normal Neck -no JVD no thyromegaly Cardio- S1 S2 heard Abdomen -is soft mildly distended bowel sounds are positive Bilateral lower extremities -no edema no swelling [employer] -alert awake oriented 3 no focal neurological deficits status post back surgery - Labs CBC & Chem 7: 03/16/18 06:45 03/16/18 06:45 Labs: Abnormal Lab Results - Last 24 Hours (Table) 03/15/18 03/15/18 03/16/18 Range/Units 07:14 19:00 06:45 RBC 4.01 L (4.30-5.90) m/uL Hgb 12.0 L (13.0-17.5) gm/dL Hct 37.5 L (39.0-53.0) % Plt Count 125 L (150-450) k/uL Neutrophils # 8.0 H (1.3-7.7) k/uL Lymphocytes # 0.7 L (1.0-4.8) k/uL Sodium 135 L (137-145) mmol/L Glucose 127 H (74-99) mg/dL Calcium 7.6 L (8.4-10.2) mg/dL Total Protein 5.8 L (6.3-8.2) g/dL Albumin 3.1 L (3.5-5.0) g/dL Urine Protein 1+ H (Negative) Urine Blood Moderate H (Negative) Urine RBC 7 H (0-5) /hpf Urine Mucus Rare H (None) /hpf 03/16/18 Range/Units 06:45 RBC (4.30-5.90) m/uL Hgb (13.0-17.5) gm/dL Hct (39.0-53.0) % Plt Count (150-450) k/uL Neutrophils # (1.3-7.7) k/uL Lymphocytes # (1.0-4.8) k/uL Sodium 134 L (137-145) mmol/L Glucose 118 H (74-99) mg/dL Calcium 7.5 L (8.4-10.2) mg/dL Total Protein (6.3-8.2) g/dL Albumin (3.5-5.0) g/dL Urine Protein (Negative) Urine Blood (Negative) Urine RBC (0-5) /hpf Urine Mucus (None) /hpf Assessment and Plan Assessment: ASSESSMENT Status post laminectomy and decompression L3-L4, L4-L5 for severe spondylosis, spondylolisthesis L4-5 with severe spinal stenosis of L3- 4 and L4-L5 GERD Hypertension Reactive leukocytosis Abdominal distention with ileus relieved Hypothyroidism History of hernia repair in the past Mild thrombocytopenia Plan: Continue with GI DVT prophylaxis. Patient has been passing gas and had a bowel movement this morning. Continue with bowel regimen. His Chong's catheter has been reinitiated yesterday- will probably need another voiding trial. Continue with the rest of medication regimen and further recommendations to follow depending on the progress of the patient.
--- NOTE | 2018-03-16 15:13 | P.PN ---
Subjective Progress Note Date: 03/16/18 The patient is a 72-year-old gentleman who had postoperative ileus following orthopedic surgery. He is passing flatus. He is having bowel movements. His is at bedside. Patient reports doing much better in the last 24 hours. Objective - Vital Signs Vital signs: Vital Signs Temp 98.3 F 03/16/18 07:56 Pulse 101 H 03/16/18 07:56 Resp 16 03/16/18 07:56 BP 157/88 03/16/18 07:56 Pulse Ox 93 L 03/16/18 07:56 Intake & Output 03/15/18 03/16/18 03/16/18 18:59 06:59 18:59 Intake Total 100 2500 Output Total 700 1025 Balance -600 1475 Intake: Intake, IV Titration 1600 Amount Sodium Chloride 0.9% 1, 1600 000 ml @ 100 mls/hr IV . Q10H [facility] Rx#:[id number] Oral 100 900 Output: Urine 700 1025 Straight 700 Other: Voiding Method Indwelling Catheter Indwelling Catheter # Bowel Movements 1 - Exam GENERAL: Well developed and in no acute distress. Pleasant. HEENT: No sclera icterus. Extraocular movements grossly intact. Moist buccal mucosa. Head is atraumatic, normocephalic. Hears conversational speech. No nasal drainage. NECK: Supple without lymphadenopathy. CHEST: Non-labored respirations and equal bilateral excursions. CARDIOVASCULAR: Regular rate and rhythm. Palpable 2+ radial pulses. ABDOMEN: Soft, nontender. Minimal distention MUSCULOSKELETAL: No clubbing, cyanosis or edema. NEUROLOGIC: No focal or lateralizing signs. PSYCH: Appropriate affect. Alert and oriented to person, place and time. SKIN: Good skin turgor. Well perfused. - Labs CBC & Chem 7: 03/16/18 06:45 03/16/18 06:45 Labs: Abnormal Lab Results - Last 24 Hours (Table) 03/15/18 03/16/18 03/16/18 Range/Units 19:00 06:45 06:45 RBC 4.01 L (4.30-5.90) m/uL Hgb 12.0 L (13.0-17.5) gm/dL Hct 37.5 L (39.0-53.0) % Plt Count 125 L (150-450) k/uL Neutrophils # 8.0 H (1.3-7.7) k/uL Lymphocytes # 0.7 L (1.0-4.8) k/uL Sodium 134 L (137-145) mmol/L Glucose 118 H (74-99) mg/dL Calcium 7.5 L (8.4-10.2) mg/dL Urine Protein 1+ H (Negative) Urine Blood Moderate H (Negative) Urine RBC 7 H (0-5) /hpf Urine Mucus Rare H (None) /hpf Assessment and Plan (1) Ileus, postoperative Current Visit: Yes Status: Acute Code(s): K91.89 - OTH POSTPROCEDURAL COMPLICATIONS AND DISORDERS OF DGSTV SYS; K56.7 - ILEUS, UNSPECIFIED SNOMED Code(s): 757465390 Plan: 1. Continue bowel regimen. 2. No surgical intervention required. 3. Gen. surgery signing off. Please reconsult if needed.
[2018-03-16] MEDS: ALBUTEROL NEBULIZED 2.5 MG/3 ML INHALATION PRN (19:40)
[2018-03-17] MEDS: HYDROmorphone 1 MG/ML 1 ML SYRINGE IVP PRN (04:10)
[2018-03-17] MEDS: METOCLOPRAMIDE 5 MG/ML 2 ML VIAL IVP SCH ×4 (06:20→23:52)
[2018-03-17] MEDS: LACTATED RINGERS 1,000 ML IV SCH (06:20)
[2018-03-17] MEDS: LEVOTHYROXINE 100 MCG TAB PO SCH (06:20)
[2018-03-17] MEDS: TAMSULOSIN 0.4 MG CAP.ER.24H PO SCH (08:43)
[2018-03-17] MEDS: CALCITRIOL 0.25 MCG CAP PO SCH (08:43)
[2018-03-17] MEDS: ATENOLOL 25 MG TAB PO SCH (08:43)
[2018-03-17] MEDS: ASPIRIN 325 MG TAB PO SCH (08:43)
[2018-03-17] MEDS: OXYBUTYNIN 15 MG TAB.ER.24 PO SCH (08:43)
[2018-03-17] MEDS: PANTOPRAZOLE 40 MG/10 ML VIAL IVP SCH ×2 (08:43→20:08)
[2018-03-17] MEDS: FINASTERIDE 5 MG TAB PO SCH (08:44)
[2018-03-17] MEDS: GABAPENTIN 300 MG CAP PO SCH ×3 (08:44→21:32)
[2018-03-17] MEDS: HYDROcodone/APAP 5-325MG 1 EACH TAB PO PRN ×3 (08:44→20:08)
[2018-03-17] MEDS: MONTELUKAST 10 MG TAB PO SCH (08:44)
[2018-03-17] MEDS: SODIUM CHLORIDE 0.9% 1,000 ML IV SCH ×3 (10:31→21:32)
[2018-03-17] MEDS: SENNOSIDES-DOCUSATE SODIUM 1 EACH TAB PO SCH ×2 (10:31→12:57)
--- NOTE | 2018-03-17 11:19 | P.PN ---
Subjective Progress Note Date: 03/17/18 Principal diagnosis: Status post laminectomy decompression surgery L3-L4, L4-L5 for severe spondylosis Mr. Kaminski is a 72-year-old male admitted for elective laminectomy due to chronic low back pain currently being monitored after the surgery. Patient is currently lying in bed appears to be in no acute distress. Patient had a bowel movement yesterday. He denies having any abdominal pain currently. He still has a Chong's catheter in place. We will give him a voiding trial. On review of systems: He still has low back pain due to recent surgery. But denies having any tingling or numbness in his bilateral lower extremities. Patient denies having any fevers chills or rigors. No complaints of chest pain palpitations. No cough difficulty in breathing. Objective - Vital Signs Vital signs: Vital Signs Temp 98.4 F 03/17/18 05:00 Pulse 97 03/17/18 05:00 Resp 17 03/17/18 05:00 BP 174/99 03/17/18 05:00 Pulse Ox 92 L 03/17/18 05:00 Intake & Output 03/16/18 03/17/18 03/17/18 18:59 06:59 18:59 Intake Total 500 1150 Output Total 1200 Balance 500 -50 Intake: Intake, IV Titration 500 1150 Amount Sodium Chloride 0.9% 1, 500 1150 000 ml @ 100 mls/hr IV . Q10H [facility] Rx#:[id number] Output: Urine 1200 Straight 1200 Other: Voiding Method Indwelling Catheter Indwelling Catheter Indwelling Catheter - Exam Head -conjunctiva normal oral mucosa normal Neck -no JVD no thyromegaly Cardio- S1 S2 heard Abdomen -is soft mildly distended bowel sounds are positive Bilateral lower extremities -no edema , no swelling [employer] -alert awake oriented 3 no focal neurological deficits status post back surgery - Labs CBC & Chem 7: 03/16/18 06:45 03/16/18 06:45 Assessment and Plan Assessment: ASSESSMENT Status post laminectomy and decompression L3-L4, L4-L5 for severe spondylosis, spondylolisthesis L4-5 with severe spinal stenosis of L3- 4 and L4-L5 GERD Hypertension Reactive leukocytosis Abdominal distention with ileus relieved Hypothyroidism History of hernia repair in the past Mild thrombocytopenia Plan: Continue with GI/ DVT prophylaxis. Patient has been passing gas and had a bowel movement yesterday. Continue with bowel regimen. Continue with the rest of medication regimen.
--- NOTE | 2018-03-17 12:24 | P.PN ---
Progress Note - Text Progress Note Date: 03/17/18 Orthopedic Spine: Patient is a pleasant 72-year-old male who is seen and examined at the bedside following posterior lateral decompression and fusion performed Sunday. Over the past 2 days he has continued to have improvement of his symptoms. He has had a bowel movement. He is not experiencing any abdominal pain. He is passing gas without difficulty. He has been able to sit in a bedside chair and ambulate the hallways without significant difficulty. His pain is been better controlled. He has been able to discontinue IV Dilaudid. Pain is currently being controlled with [place]. He has had some difficulty with urination postoperatively. A Chong cath remains intact. Nursing is currently planning for removal of Chong catheter today to see the patient is able to void on his own. He is not currently complaining of nausea, vomiting, fever, or chills. Physical Exam Lumbar Fusion: Status post surgical day number 4 Patient is awake, alert, and oriented 3 Vital signs stable Good chest excursion with deep inspiration and expiration Abdomen nontender Dorsiflexion, plantarflexion, and extensor hallucis longus positive sustained bilaterally No signs or symptoms of DVT; no calf pain; pneumatic cuffs intact bilateral lower extremities Dressing is dry and intact with some dried blood over the incision sites greater on the left than the right; no erythema, purulence, or signs of infection Generalized swelling and bruising around the surgical sites and across the lumbar spine Neurovascularly intact bilaterally lower extremities Chong catheter intact Pertinent studies: X-rays the abdomen taken on 03/14/2018: Prominent air-filled: Within the abdomen correlate for colonic ileus; no evidence of free air; evidence of pedicle screws at L3-4 and L4-5 Assessment: Minimally invasive posterior lateral decompression and fusion L3-4 and L4-5 Transforaminal lumbar interbody fusion L4-5 Low back pain Plan: 1. Ambulate as tolerated; work with Physical Therapy to increase mobilization 2. Continue pain control with oral medications; patient has been able to discontinue IV Dilaudid 3. Telfa and Tegaderm to remain intact 4. Medical management can continue to manage patient for patient's other medical diagnosis 5. We will continue to follow the patient closely; patient has been having significant improvement over the past 2 days. His Chong catheter will be planned to be discontinued today. If he is able to void on his own without difficulty and continues to improve, we may plan for discharge home as early as tomorrow, 03/18/2018 6. Patient can follow-up with Marcin Sabillon PA-C or Dr. Mauro Chiu at [facility] in 2-3 weeks following discharge
[2018-03-17] MEDS: ALBUTEROL NEBULIZED 2.5 MG/3 ML INHALATION PRN (19:30)
[2018-03-18] MEDS: HYDROcodone/APAP 5-325MG 1 EACH TAB PO PRN ×3 (00:39→09:51)
[2018-03-18] MEDS: LEVOTHYROXINE 100 MCG TAB PO SCH (05:43)
[2018-03-18] MEDS: METOCLOPRAMIDE 5 MG/ML 2 ML VIAL IVP SCH ×2 (05:43→11:11)
[2018-03-18] MEDS: LACTATED RINGERS 1,000 ML IV SCH (07:06)
[2018-03-18] MEDS: GABAPENTIN 300 MG CAP PO SCH (07:28)
[2018-03-18] MEDS: FINASTERIDE 5 MG TAB PO SCH (07:28)
[2018-03-18] MEDS: OXYBUTYNIN 15 MG TAB.ER.24 PO SCH (07:28)
[2018-03-18] MEDS: CALCITRIOL 0.25 MCG CAP PO SCH (07:28)
[2018-03-18] MEDS: ASPIRIN 325 MG TAB PO SCH (07:28)
[2018-03-18] MEDS: MONTELUKAST 10 MG TAB PO SCH (07:29)
[2018-03-18] MEDS: TAMSULOSIN 0.4 MG CAP.ER.24H PO SCH (07:29)
[2018-03-18] MEDS: PANTOPRAZOLE 40 MG/10 ML VIAL IVP SCH (07:29)
[2018-03-18] MEDS ORDERED: HEPARIN SODIUM,PORCINE 10,000 UNIT/ML 1 ML VIAL ONE (07:33)
[2018-03-18] MEDS: ATENOLOL 25 MG TAB PO SCH (07:33)
[2018-03-18] MEDS ORDERED: SODIUM CHLORIDE 0.9% IRRIG 1,000 ML BTL IRRIGATION ONE (07:33)
[2018-03-18] MEDS: SENNOSIDES-DOCUSATE SODIUM 1 EACH TAB PO SCH (07:36)
[2018-03-18 07:43] VITALS: BP 140/77; RESP 20; TEMP 97
[2018-03-18] MEDS: ALBUTEROL NEBULIZED 2.5 MG/3 ML INHALATION PRN (07:44)
[2018-03-18 08:41] VITALS: PULSE 100
--- NOTE | 2018-03-18 08:42 | P.DS ---
Providers Date of admission: 03/13/18 05:42 Expected date of discharge: 03/18/18 Attending physician: Filiberto Chiu Consults: 03/13/18 11:56 Consult Physician Routine Consulting Provider: Sol Robert Consult Reason/Comments: Medical management Do you want consulting provider notified?: Yes 03/15/18 13:07 Consult Physician Routine Consulting Provider: Anni Coates Consult Reason/Comments: possible ileus Do you want consulting provider notified?: Yes Primary care physician: Navid Hollingsworth - Discharge Diagnosis(es) (1) Lumbar degenerative disc disease Current Visit: Yes Status: Acute (2) Degenerative scoliosis Current Visit: Yes Status: Acute (3) Low back pain Current Visit: Yes Status: Acute (4) Lumbar back pain with radiculopathy affecting lower extremity Current Visit: Yes Status: Acute (5) Neurogenic claudication Current Visit: Yes Status: Acute (6) Spinal stenosis of lumbar region Current Visit: Yes Status: Acute (7) Spondylolisthesis at L4-L5 level Current Visit: Yes Status: Acute Hospital Course: This is a pleasant 72-year-old male who presented with L3-4 degenerative disc disease and severe spinal canal stenosis, L4-5 spondylolisthesis, degenerative disc disease, and severe spinal canal stenosis, degenerative scoliosis, neurogenic claudication, and low back pain with lower extremity radiculopathy who failed outpatient conservative therapy. He was admitted for an L3-4 and L4- 5 minimally invasive posterior lateral decompression and fusion with L4-5 transforaminal lumbar interbody fusion. The patient tolerated the procedure well and did fairly well postoperatively in regards to his lumbar spine. He did have some difficulty with constipation shortly after surgical intervention. Since that time he has been able to have a bowel movement. He has not had a second bowel movement but continues to have gas. He is not experiencing any significant abdominal pain. He also was having some difficulty with urinary retention. His Chong catheter was discontinued yesterday and he has been voiding without difficulty. He feels he is ready for discharge home. He has been seen and examined by case management who has set up home care at discharge. Patient states his back pain has been better controlled postoperatively. He is not currently complaining of significant lower extremity weakness or radiculopathy bilaterally. Condition on day of discharge stable. Patient will be discharged home. Patient was cleared preoperatively for surgery by Dr. Hollingsworth. Patient currently denies any nausea, vomiting, fever, or chills. Patient is eating and voiding freely without difficulty. Patient may shower Tegaderm dressing intact. Patient may remove Tegaderm dressing in 3 days and shower without a dressing at that time. Patient should keep Steri-Strips intact and allow them to fall off naturally. Patient should refrain from driving until at least after their first follow-up appointment in the office. Patient should avoid excessive bending, lifting, and twisting; no lifting greater than 10 pounds. Patient is given a prescription for [place] 5 mg/ 325 mg 1-2 tabs every 6 hours as needed for pain, dispensed #56. An "Opioid Start Talking" form has been discussed with the patient and his form has been signed by the patient and myself. MAPS has also been reviewed prior to discharge. MAPS overall overdosed risk score: 90. He is also given a prescription for baclofen 10 mg 1 tab 3 times a day as needed for muscle spasm, dispense #60 and Colace 100 mg 1 tab twice a day dispensed #60 as needed for constipation. He may resume previously home prescribed medications except for meloxicam 15 mg by mouth daily. He should avoid anti-inflammatories over the next 6 weeks postoperatively. Physical Exam on day of discharge: Patient is awake, alert, and oriented 3 Vital signs stable Good chest excursion with deep inspiration and expiration Abdomen soft nontender No signs or symptoms of DVT; no calf pain Extensor hallucis longus, plantarflexion, and dorsiflexion positive sustained bilateral lower extremities Incision is dry and intact with a small area of blood; no erythema, purulence, or signs of infection No significant active drainage from the incision sites Dressing is removed and reapplied with dressing and Tegaderm Procedures: L3-4 and L4-5 minimally invasive posterior lateral decompression and fusion with L4-5 transforaminal lumbar interbody fusion Patient Condition at Discharge: Stable Plan - Discharge Summary Discharge Rx Participant: Yes New Discharge Prescriptions: New Baclofen 10 mg PO TID PRN #60 tab PRN Reason: Spasms Docusate [Colace] 100 mg PO BID #60 capsule Hydrocodone/Acetaminophen [[place] 5-325] 1 - 2 each PO Q6HR PRN #56 tab PRN Reason: Pain No Action Atenolol [Tenormin] 25 mg PO DAILY Zolpidem [Ambien] 10 mg PO HS PRN PRN Reason: Insomnia Tamsulosin HCl [Flomax] 0.4 mg PO DAILY Oxybutynin Chloride [Ditropan XL] 15 mg PO DAILY Montelukast [Singulair] 10 mg PO DAILY Meloxicam [Mobic] 15 mg PO DAILY Aspirin 325 mg PO DAILY Gabapentin [Neurontin] 300 mg PO TID Omeprazole 20 mg PO DAILY Levothyroxine Sodium [Levoxyl] 100 mcg PO DAILY Finasteride [Proscar] 5 mg PO DAILY Calcitriol [Rocaltrol] 0.5 mcg PO DAILY Albuterol Nebulized [Ventolin Nebulized] 2.5 mg INHALATION RT-Q6H PRN PRN Reason: Shortness Of Breath Discharge Medication List Aspirin 325 mg PO DAILY 03/13/15 [History] Atenolol [Tenormin] 25 mg PO DAILY 03/13/15 [History] Meloxicam [Mobic] 15 mg PO DAILY 03/13/15 [History] Montelukast [Singulair] 10 mg PO DAILY 03/13/15 [History] Oxybutynin Chloride [Ditropan XL] 15 mg PO DAILY 03/13/15 [History] Tamsulosin HCl [Flomax] 0.4 mg PO DAILY 03/13/15 [History] Zolpidem [Ambien] 10 mg PO HS PRN 03/13/15 [History] Calcitriol [Rocaltrol] 0.5 mcg PO DAILY 03/06/18 [History] Finasteride [Proscar] 5 mg PO DAILY 03/06/18 [History] Gabapentin [Neurontin] 300 mg PO TID 03/06/18 [History] Levothyroxine Sodium [Levoxyl] 100 mcg PO DAILY 03/06/18 [History] Omeprazole 20 mg PO DAILY 03/06/18 [History] Albuterol Nebulized [Ventolin Nebulized] 2.5 mg INHALATION RT-Q6H PRN 03/13/18 [ History] Baclofen 10 mg PO TID PRN #60 tab 03/18/18 [Rx] Docusate [Colace] 100 mg PO BID #60 capsule 03/18/18 [Rx] Hydrocodone/Acetaminophen [[place] 5-325] 1 - 2 each PO Q6HR PRN #56 tab 03/18/18 [Rx] Follow up Appointment(s)/Referral(s): Marcin Sabillon, MARYAM [PHYSICIAN HAND BRAILLE TRANSCRIBER] - 03/29/18 9:00 am (Patient may follow- up with Marcin Sabillon PA-C or Dr. Mauro Chiu at [facility] in 2-3 weeks following discharge.) Activity/Diet/Wound Care/Special Instructions: 1. Patient may shower with Tegaderm dressing intact. 2. Patient may remove Tegaderm dressing in 3 days and shower without a dressing at that time. 3. Patient should keep Steri-Strips intact and allow them to fall off naturally. 4. Patient should refrain from driving until at least after their first follow- up appointment in the office. 5. Patient should avoid excessive bending, twisting, and lifting; no lifting greater than 10 pounds 6. Take medications as prescribed 7. Do not soak in tub Discharge Disposition: HOME WITH HOME HEALTH SERVICES
[2018-03-18] MEDS: SODIUM CHLORIDE 0.9% 1,000 ML IV SCH (11:11)
--- NOTE | 2018-03-18 11:22 | CDI ---
Last Revision, June 2017 Documentation Clarification Form Date: 03/18/2018 11:07:06 AM From: Jenifer Persaud RN, CCDS Admit Date: 03/13/2018 5:42:00 AM Patient Name: Wenceslao Kaminski Visit Number: [id number] Discharge Date: ATTENTION: The Clinical Documentation Specialists (CDI) and [facility] Coding Staff appreciate your assistance in clarifying documentation. Please respond to the clarification below the line at the bottom and electronically sign. The CDI & [facility] Coding staff will review the response and follow-up if needed. Please note: Queries are made part of the Legal Health Record. If you have any questions, please contact the author of this message via ITS. Anni Donald MD Ileus, Postoperative is documented in the ongoing progress notes beginning . Patients Admitting Diagnosis: Spinal stenosis LG 4 L4 5 Post-Operative Diagnosis: Same Procedure performed: Laminectomy and decompression L3 4 L4 5 with foraminotomies and facetectomy with fusion for 360. History/Risk Factors: Degenerative disc disease, Spinal Stenosis, Hypertension, BPH, Clinical Indicators: 03/15/18 patient developed difficulty having a bowel movement. He developed constipation with and abdominal x-ray suggestive of an ileus. He is passing gas. His abdomen is soft, mildly distended with diffuse tenderness. a few active bowel sounds. Treatment: MiraLax, Dulcolax suppository rectal x1 Reglan 10 iv every 6 hours. Increase activity. In order to accurately reflect this patients severity of illness, please clarify if the post-operative diagnosis is: An expected post-procedural or post-surgical condition; An unexpected post-procedural or post-surgical condition related to surgical care; Other, please specify Unable to determine Please continue to document in your progress notes and discharge summary in order to capture severity of illness and risk of mortality. Include clinical findings that support your diagnosis. MTDD
--- NOTE | 2018-03-18 14:15 | P.PN ---
Subjective Progress Note Date: 03/18/18 Principal diagnosis: Status post laminectomy decompression surgery L3-L4, L4-L5 for severe spondylosis Mr. Kaminski is a 72-year-old male admitted for elective laminectomy due to chronic low back pain currently being monitored after the surgery. Patient is currently lying in bed appears to be in no acute distress. Patient had a bowel movement yesterday. He denies having any abdominal pain currently. Patient's Chong's catheter has been discontinued yesterday and he is able to be by himself now. On review of systems: He still has low back pain due to recent surgery. But denies having any tingling or numbness in his bilateral lower extremities. Patient denies having any fevers chills or rigors. No complaints of chest pain palpitations. No cough difficulty in breathing. Objective - Vital Signs Vital signs: Vital Signs Temp 97.0 F L 03/18/18 06:49 Pulse 100 03/18/18 08:36 Resp 20 03/18/18 08:36 BP 140/77 03/18/18 06:49 Pulse Ox 92 L 03/18/18 06:49 Intake & Output 03/17/18 03/18/18 03/18/18 18:59 06:59 18:59 Intake Total 1989 480 Output Total 1320 Balance -1320 1989 480 Weight 90.265 kg Intake: Intake, IV Titration 800 Amount Sodium Chloride 0.9% 1, 800 000 ml @ 100 mls/hr IV . Q10H IDRIS Rx#:[id number] Oral 1190 480 Output: Urine 1320 Other: Voiding Method Toilet Toilet Toilet Urinal Urinal # Voids 2 - Exam Head -conjunctiva normal oral mucosa normal Neck -no JVD no thyromegaly Cardio- S1 S2 heard Abdomen -is soft mildly distended bowel sounds are positive Bilateral lower extremities -no edema , no swelling BAR SUPERVISOR -alert awake oriented 3 no focal neurological deficits status post back surgery - Labs CBC & Chem 7: 03/16/18 06:45 03/16/18 06:45 Assessment and Plan Assessment: ASSESSMENT Status post laminectomy and decompression L3-L4, L4-L5 for severe spondylosis, spondylolisthesis L4-5 with severe spinal stenosis of L3- 4 and L4-L5 GERD Hypertension Reactive leukocytosis Abdominal distention with ileus relieved Hypothyroidism History of hernia repair in the past Mild thrombocytopenia Plan: Continue with GI/ DVT prophylaxis as per primary team. Patient has been passing gas and had a bowel movement yesterday. Patient is being discharged home with pain medications and laxatives today.
== END 2018-03-18 12:13 | disposition home health service (06) | DRG 454 ==
LOC: 2ORMAIN 05:42 → 3SUR 12:56 → 5MS5E 03-16 10:15
PROVIDERS: ADMIT Orthopaedic Surgery Orthopaedic Surgery of the Spine; ATTEND Orthopaedic Surgery Orthopaedic Surgery of the Spine
PROC: 0SG0071 Fusion of Lumbar Vertebral Joint with Autologous Tissue Substitute, Posterior Approach, Posterior Column, Open Approach (ICD-10-PCS; 2018-03-13)
PROC: 0ST20ZZ Resection of Lumbar Vertebral Disc, Open Approach (ICD-10-PCS; 2018-03-13)
PROC: 07DR3ZZ Extraction of Iliac Bone Marrow, Percutaneous Approach (ICD-10-PCS; 2018-03-13)
PROC: 30233N0 Transfusion of Autologous Red Blood Cells into Peripheral Vein, Percutaneous Approach (ICD-10-PCS; 2018-03-13)
PROC: 0SG10AJ Fusion of 2 or more Lumbar Vertebral Joints with Interbody Fusion Device, Posterior Approach, Anterior Column, Open Approach (ICD-10-PCS; principal; 2018-03-13 07:30)
DX: M43.16 Spondylolisthesis, lumbar region (principal); K56.7 Ileus, unspecified; M41.86 Other forms of scoliosis, lumbar region; M48.062 Spinal stenosis, lumbar region with neurogenic claudication; M51.16 Intervertebral disc disorders with radiculopathy, lumbar region; J45.909 Unspecified asthma, uncomplicated; I49.9 Cardiac arrhythmia, unspecified; I10 Essential (primary) hypertension; E03.9 Hypothyroidism, unspecified; K21.9 Gastro-esophageal reflux disease without esophagitis; D69.6 Thrombocytopenia, unspecified; G89.29 Other chronic pain; N42.9 Disorder of prostate, unspecified; F41.9 Anxiety disorder, unspecified; R33.9 Retention of urine, unspecified; Z79.899 Other long term (current) drug therapy; Z79.1 Long term (current) use of non-steroidal anti-inflammatories (NSAID); Z79.82 Long term (current) use of aspirin; Z79.890 Hormone replacement therapy; Z82.49 Family history of ischemic heart disease and other diseases of the circulatory system; Z87.11 Personal history of peptic ulcer disease
CPT/HCPCS: 72100; 74019; 80048; 80053; 81001; 83735; 85025; 86850; 86891; 86900; 86901; 94640

== ENCOUNTER → 2019-04-22 | Outpatient (CLI) | payer MEDICARE, OTHER ==
--- NOTE | 2019-04-22 12:38 | XR ---
EXAMINATION TYPE: XR chest 2V DATE OF EXAM: 04/22/2019 COMPARISON: 03/07/2018 INDICATION: Short of breath TECHNIQUE: Frontal and lateral views of the chest are obtained. FINDINGS: The heart size is normal. The pulmonary vasculature is normal. There is a 1.5 cm density or pleural plaque at the right costophrenic angle. Lungs otherwise appear c lear.. Nodules present previously. Follow-up is recommended. IMPRESSION: 1. Pleural plaque or nodularity at the right costophrenic angle. Follow-up is recommended in 6 months .
== END | disposition home or self-care (01) ==
LOC: RADXRYALE 10:07
PROVIDERS: ATTEND Physician Assistant Medical
DX: R06.02 Shortness of breath (principal)
CPT/HCPCS: 71046

== ENCOUNTER → 2019-09-02 | Outpatient (CLI) | payer MEDICARE, OTHER ==
--- NOTE | 2019-09-02 15:44 | XR ---
EXAMINATION TYPE: XR chest 2V DATE OF EXAM: 09/02/2019 COMPARISON: 04/22/2019 HISTORY: Shortness of breath TECHNIQUE: Frontal and lateral views of the chest are obtained. FINDINGS: Scattered senescent parenchymal changes noted. Hyperinflation compatible with COPD. No evidence for infiltrate. No evidence for atelectasis. Stable nipple shadow right lung base. Heart size is stable. Mediastinal structures are stable and grossly unremarkable. No evidence for hilar prominence. Degenerative changes dorsal spine. IMPRESSION: 1. No evidence for acute pulmonary disease.
== END | disposition home or self-care (01) ==
LOC: RADXRYALE 15:27
PROVIDERS: ATTEND Physician Assistant Medical
DX: R91.1 Solitary pulmonary nodule (principal); R93.89 Abnormal findings on diagnostic imaging of other specified body structures
CPT/HCPCS: 71046

== ENCOUNTER → 2021-02-18 | Outpatient (CLI) | payer MEDICARE, OTHER ==
--- NOTE | 2021-02-18 11:44 | XR ---
EXAMINATION TYPE: XR chest 2V DATE OF EXAM: 02/18/2021 COMPARISON: 09/02/2019 HISTORY: Shortness of breath TECHNIQUE: Frontal and lateral views of the chest are obtained. FINDINGS: Scattered senescent parenchymal changes noted. Hyperinflation compatible with COPD. No evidence for infiltrate. No evidence for atelectasis. Heart size is stable. Mediastinal structures are stable and grossly unremarkable. No evidence for hilar prominence. Degenerative changes dorsal spine. IMPRESSION: 1. No evidence for acute pulmonary disease.
== END | disposition home or self-care (01) ==
LOC: RADXRYALE 11:07
PROVIDERS: ATTEND Physician Assistant Medical
DX: R91.8 Other nonspecific abnormal finding of lung field (principal)
CPT/HCPCS: 71046

== ENCOUNTER → 2021-07-12 | Outpatient (CLI) | payer MEDICARE, OTHER ==
--- NOTE | 2021-07-12 12:49 | XR ---
EXAMINATION TYPE: XR chest 2V DATE OF EXAM: 07/12/2021 COMPARISON: Chest x-ray 02/18/2021, 09/02/2019, 04/22/2019 HISTORY: Shortness of breath and cough TECHNIQUE: Frontal and lateral views of the chest are obtained. FINDINGS: Postop changes are noted to the shoulders. Cardiac mediastinal silhouette is stable. No ev ident airspace disease, pneumothorax, or pleural effusion. Aorta is dense. Thoracic spondylosis is ag ain noted. Postop changes are noted to the lumbar spine. Sclerotic focus associated with the posterio r right eighth rib is present as noted on previous exams. IMPRESSION: No acute cardiopulmonary process.
== END | disposition home or self-care (01) ==
LOC: RADXRYALE 11:07
PROVIDERS: ATTEND Physician Assistant
DX: R06.02 Shortness of breath (principal); R05.9 Cough, unspecified
CPT/HCPCS: 71046

== ENCOUNTER 2021-09-12 06:51 | Day surgery (SDC) | payer MEDICARE, OTHER ==
[2021-09-08 15:09] VITALS: BMI 30.1
[~2021-09-12 06:51] MED LIST changes: +ALPRAZolam 0.25 MG TAB PO PRN; +ALPRAZolam 0.5 MG TAB PO PRN; +ASPIRIN 325 MG TAB PO STA; -BACITRACIN 50,000 UNIT, POLYMYXIN B 500,000 UNIT in SODIUM CHLORIDE 0.9% IRRIGATIO 1,00... IRRIGATION ONE; -DEXAMETHASONE SOD PHOSPHATE 10 MG/ML 1 ML VIAL IV ONE; -LIDOCAINE 1% 20 ML VIAL (10MG/ML) FOR IV START INTRADERMA PRN; -MIDAZOLAM 2 MG/2 ML VIAL IV PRN; +NITROGLYCERIN SL TABS 0.4 MG TAB SUBLINGUAL PRN; -ONDANSETRON 4 MG/2 ML VIAL IVP ONE; -ceFAZolin IN SWFI 2 GM/20 ML SYRINGE IVP ONE
[2021-09-12] MEDS ORDERED: SODIUM CHLORIDE 0.9% 1,000 ML IV ONE (07:10)
[2021-09-12] MEDS ORDERED: fentaNYL (PF) 50 MCG/ML 2 ML AMP ONE (07:59)
[2021-09-12] MEDS ORDERED: BENZOCAINE SPRAY 1 CAN TOPICAL ONE ×3 (08:10→08:26)
[2021-09-12] MEDS ORDERED: IV FLUID CONTINUATION 800 ML IV ONE ×2 (08:20)
[2021-09-12] MEDS ORDERED: MIDAZOLAM 2 MG/2 ML VIAL IV ONE ×2 (08:24→08:30)
[2021-09-12] MEDS ORDERED: fentaNYL (PF) 50 MCG/ML 2 ML AMP IV ONE (08:24)
[2021-09-12] MEDS ORDERED: VERAPAMIL 2.5 MG/ML 2 ML AMP ONE (08:49)
[2021-09-12] MEDS ORDERED: LIDOCAINE 1% INJ 10MG/ML (20 ML MDV) ONE (08:49)
[2021-09-12] MEDS: LIDOCAINE 1% INJ 10MG/ML (20 ML MDV) SQ ONE ×2 (09:01→09:09)
[2021-09-12] MEDS ORDERED: HEPARIN SODIUM 1,000 UN/ML (10ML VL) ONE (09:02)
[2021-09-12] MEDS ORDERED: VERAPAMIL SYRINGE (5 MG/10 ML) INTRAARTER ONE (09:02)
[2021-09-12] MEDS: HEPARIN SODIUM 1,000 UN/ML (10ML VL) IV ONE ×3 (09:04→09:23)
[2021-09-12] MEDS ORDERED: ADENOSINE 90 MG in SODIUM CHLORIDE 0.9% 60 ML IVP ONE ×5 (09:36→09:50)
[2021-09-12] MEDS ORDERED: IOPAMIDOL-370 125ML BTL INJ ONE (09:57)
[2021-09-12] MEDS ORDERED: ALBUTEROL NEBULIZED 2.5 MG/3 ML INHALATION PRN (10:02)
[2021-09-12] MEDS ORDERED: ZOLPIDEM 10 MG TAB PO PRN (10:02)
[2021-09-12] MEDS ORDERED: RX INFO: IV CONTRAST WAS GIVEN 1 EACH MISC MISCELLANE PRN (10:03)
--- NOTE | 2021-09-12 10:03 | P.PCN ---
Date of Procedure: 09/12/21 Operative Findings: TRANSESOPHAGEAL ECHOCARDIOGRAM RURAL MAIL CONTRACTOR: JOHN GRIFFITHS MD, RPVI INDICATION: Atrial septal defect SEDATION: Conscious sedation COMPLICATION: None LEVEL OF SEDATION Moderate with sedation length of 15 minutes PROCEDURE DESCRIPTION: After obtaining an informed consent, the patient was brought to transesophageal echocardiogram room. Pulse oximetry and heart monitors were attached to the patient. The patient throat was sprayed using lidocaine. The patient was turned into left lateral position. After that a bite guard was placed. After an appropriate conscious sedation was initiated, the transesophageal echocardiogram was advanced through a bite guard into the mid esophagus. A 2-D echocardiogram images, color Doppler images, continuous wave images, pulse-wave images, of various cardiac structure were performed. After that the transesophageal echocardiogram probe was advanced into the stomach and fixed to obtain transgastric view was. The probe was brought into the mid esophagus. Inter-atrial septum was interrogated using 2D images, color Doppler images, and then contrast study. After that transesophageal echocardiogram was withdrawn out and upon withdrawing the descending thoracic aorta all the way up to the ar ch was evaluated. FINDING: The left ventricular dimension and systolic function appeared to be within normal limits. The right ventricular is dilated with normal function. The left atrium is mildly dilated and the right atrium is moderately dilated. The left atrial appendage appeared to be free from any thrombus. The interatrial septum appeared to be aneurysmal with evidence of fenestrated septum and evidence off secundum ASD and PFO as well with bidirectional shunt. The aortic valve appeared to be normal with no stenosis or regurgitation. The mitral valve seems to ignore was mild MR. There is mild tricuspid regurgitation and mild pulmonic insufficiency seen. CONCLUSION: 1. Fenestrated atrial septal defect with evidence off bidirectional shunt with dilated right ventricle and right atrium 2. Normal left ventricular dimension and systolic function 3. Normal intracardiac valves 4. No evidence of pericardial effusion 5. Normal aortic root dimension
--- NOTE | 2021-09-12 10:06 | P.PCN ---
Date of Procedure: 09/12/21 Operative Findings: CARDIAC CATHETERIZATION PERFORMING PHYSICIAN: Mario Mai MD, RPVI PROCEDURE PERFORMED: 1. Selective right and left coronary angiogram 2. Left heart catheterization 3. Fractional flow reserve of the RCA 4. Fractional flow reserve of the left main 5. Selective right common femoral artery angiogram INDICATION: Shortness of breath with abnormal myocardial perfusion imaging stress test COMPLICATION: None APPROACH: Right common femoral artery LEVEL OF SEDATION: Moderate with sedation length of 56 minutes PROCEDURE DESCRIPTION: After obtaining an informed consent, the patient was brought to cardiac labourers. Local anesthesia was performed using lidocaine subcutaneously. The right common femoral artery was cannulated using Seldinger technique, the guidewire passed easily, following that we advanced a 6 Wallisian sheath dilator assembly, the wire and dilator were removed and sheath was flushed. Selective right and left coronary angiogram using a 6-Wallisian JR4 and JL catheters. Following that we did left heart catheterization using 6-Wallisian pigtail catheter. After that I did fractional flow reserve of the RCA and LAD The procedure was completed there was no complication. SELECTIVE CORONARY ANGIOGRAM: The right coronary artery: Is a large caliber vessel and a dominant vessel. The mid RCA has a lesion appeared to be in the range of 50%. FFR was performed and came in to be 0.92 Left main: Has a lesion distally appears to be in the range of 30-40%. FFR was performed and came in to be an 0.87 The left circumflex: Is a small to medium caliber vessel appears to be normal. The left anterior descending artery: The LAD is a large caliber vessel. Appeared to have an intermediate lesion in the midportion. HEMODYNAMICS: The LVEDP was 12 mmHg without significant. Across aortic valve CONCLUSION: 1. Intermediate lesion involving the mid RCA. FFR was performed and came in to be nonischemic 2. Intermediate lesion involving the distal left main. FFR also was performed and came in to be nonischemic 3. Normal left-sided filling pressure POSTPROCEDURE MANAGEMENT: Medical treatment and ASD closure
[2021-09-12] MEDS ORDERED: LIDOCAINE URO-JET JELLY 2% 5 ML KIT ONE (14:00)
[2021-09-12] MEDS: SODIUM CHLORIDE 0.9% 1,000 ML in EMPTY BAG 1 BAG IV SCH ×2 (16:32→17:36)
[2021-09-12 17:15] VITALS: PULSE 61
[2021-09-12 22:27] VITALS: BP 128/76; RESP 16; TEMP 97.8
[2021-09-13] MEDS ORDERED: LEVOTHYROXINE 100 MCG TAB PO SCH (06:30)
[2021-09-13] MEDS ORDERED: PANTOPRAZOLE 40 MG TABLET PO SCH (07:30)
[2021-09-13] MEDS ORDERED: ASPIRIN 325 MG TAB PO SCH (09:00)
[2021-09-13] MEDS ORDERED: atenoloL 50 MG TAB PO SCH (09:00)
[2021-09-13] MEDS ORDERED: amLODIPine 10 MG TAB PO SCH (09:00)
[2021-09-13] MEDS ORDERED: OXYBUTYNIN 15 MG TAB.ER.24 PO SCH (09:00)
[2021-09-13] MEDS ORDERED: MELOXICAM 7.5 MG TAB PO SCH (09:00)
[2021-09-13] MEDS ORDERED: TAMSULOSIN 0.4 MG CAP.ER.24H PO SCH (09:00)
[2021-09-13] MEDS ORDERED: MONTELUKAST 10 MG TAB PO SCH (09:00)
[2021-09-13] MEDS ORDERED: FINASTERIDE 5 MG TAB PO SCH (09:00)
== END 2021-09-12 21:00 | disposition home or self-care (01) ==
LOC: CATHCVL 06:51 → 6NMEDSUR 10:05 → CATHCVL 21:00
PROVIDERS: ATTEND Internal Medicine Interventional Cardiology
DX: Q21.1 Atrial septal defect (principal); I48.0 Paroxysmal atrial fibrillation; I10 Essential (primary) hypertension; Z82.49 Family history of ischemic heart disease and other diseases of the circulatory system; Z79.82 Long term (current) use of aspirin; Z79.890 Hormone replacement therapy; Z79.899 Other long term (current) drug therapy; Z91.041 Radiographic dye allergy status
CPT/HCPCS: 93312; 93320; 93325; 93571; 93572; 93458; 87635; C1887 ×2; C1894 ×3; C1769 ×4; J2250; J2001; J3010; J1644; J0153; Q9967

== ENCOUNTER 2021-10-07 12:48 | Day surgery (SDC) | payer MEDICARE ==
[2021-09-29 15:35] VITALS: BMI 30.2
[~2021-10-07 12:48] MED LIST changes: +ASPIRIN 325 MG TAB PO ONE; -ASPIRIN 325 MG TAB PO STA; +HEPARIN SODIUM,PORCINE 10,000 UNIT in SODIUM CHLORIDE 0.9% 1,000 ML IRRIGATION PRN; +HEPARIN SODIUM,PORCINE 2,500 UNIT in SODIUM CHLORIDE 0.9% 250 ML IRRIGATION PRN
[2021-10-07] MEDS: SODIUM CHLORIDE 0.9% 1,000 ML in EMPTY BAG 1 BAG IV SCH ×2 (13:05→22:01)
[2021-10-07 13:28] LABS: HCT 47.6 % (39.0-53.0); HGB 16.2 gm/dL (13.0-17.5); Lymphocytes % (A) 19 %; MCH 31.2 pg (25.0-35.0); MCV 91.7 fL (80.0-100.0); Mean Platelet Volume 7.6; Monocytes % (A) 6 %; Neutrophils % (A) 66 %; Platelet Count 184 k/uL (150-450); RBC 5.19 m/uL (4.30-5.90); RDW 14.1 % (11.5-15.5); WBC 7.4 k/uL (3.8-10.6)
[2021-10-07 13:29] LABS: Basophils # (A) 0.1 k/uL (0-0.2); Basophils % (A) 1 %; Eosinophils # (A) 0.5 k/uL (0-0.7); Eosinophils % (A) 7 %; Lymphocytes # (A) 1.4 k/uL (1.0-4.8); Monocytes # (A) 0.5 k/uL (0-1.0); Neutrophils # (A) 4.9 k/uL (1.3-7.7)
[2021-10-07 13:47] LABS: Potassium 4.5 mmol/L (3.5-5.1)
[2021-10-07] MEDS ORDERED: LIDOCAINE 1% INJ 10MG/ML (20 ML MDV) ONE (14:54)
[2021-10-07] MEDS ORDERED: HEPARIN SODIUM 1,000 UN/ML (10ML VL) ONE (15:05)
[2021-10-07] MEDS ORDERED: MIDAZOLAM 2 MG/2 ML VIAL IV ONE (15:10)
[2021-10-07] MEDS ORDERED: LIDOCAINE 1% INJ 10MG/ML (20 ML MDV) SQ ONE (15:13)
[2021-10-07] MEDS ORDERED: fentaNYL (PF) 50 MCG/ML 2 ML AMP ONE (15:14)
[2021-10-07] MEDS ORDERED: fentaNYL (PF) 50 MCG/ML 2 ML AMP IV ONE (15:15)
[2021-10-07] MEDS ORDERED: HEPARIN SODIUM 1,000 UN/ML (10ML VL) IV ONE (15:28)
[2021-10-07] MEDS ORDERED: CLOPIDOGREL 75 MG TAB ONE (15:41)
[2021-10-07] MEDS ORDERED: CLOPIDOGREL 75 MG TAB PO ONE (15:43)
[2021-10-07] MEDS ORDERED: IOPAMIDOL-370 100ML BTL INJ ONE (15:45)
[2021-10-07] MEDS ORDERED: RX INFO: IV CONTRAST WAS GIVEN 1 EACH MISC MISCELLANE PRN (16:40)
--- NOTE | 2021-10-07 20:59 | P.PCN ---
Date of Procedure: 10/07/21 Operative Findings: PERCUTANEOUS CLOSURE OF FENESTRATED ATRIAL SEPTUM PERFORMING PHYSICIAN: Mario Mai MD, [facility] PROCEDURE PERFORMED: 1. Successful percutaneous closure of atrial septal defect (ASD) using 35 mm Amplatzer PFO Occluder with an excellent results and without any residual shunt. 2. Intracardiac echocardiogram imaging. 3. Right atrial angiogram. 4. Ultrasound guided access of the right CFV x2 INDICATION: This is a very pleasant 75-year-old male pt. He was c/o SOB and was found to have right RA and RV enlargement. He underwent transesophageal echocardiogram and that revealed fenestrated IAS. He was brought today to undergo percutaneous closure of the interatrial septum. APPROACH: Right common femoral vein x2 COMPLICATION: None. LEVEL OF SEDATION: Moderate with sedation length of 30 minutes. PROCEDURE DESCRIPTION: After obtaining informed consent, the patient was brought to the cardiac cytology laboratory manager. The right common femoral vein was cannulated x2 using micropuncture technique under ultrasound guidance, the micropuncture wire passed easily, then I placed two 8-Latvian sheath in the right groin. Subsequently I cannulated the Right common femoral vein with the same technique and I placed an 8-Latvian sheath there as well. At that point, anticoagulation was initiated using heparin and the patient was given a bolus of 5,000 units of heparin IV with continuous ACT monitoring throughout the procedure. After that, the intracardiac echocardiogram probe was advanced through one of the venous sheath all the way to the right atrium where we did interrogate the interatrial septum and identified the ASD which was measured about 35 mm. Also atrial septal defect was identified. Subsequently, I did cross the ASD using 0.035 J-wire with the backup support of multipurpose catheter. The wire was advanced all the way to the left upper pulmonary vein and subsequently the catheter was advanced over the wire to the left upper pulmonary vein. The 0.035 J-wire was pulled out and then I advanced a jose wire. Subsequently, the multipurpose catheter was withdrawn out and the wire was left in the left upper pulmonary vein. After that, I did prep the Amplatzer PFO occluder under saline. The device was loaded into the extractor loader and unloader, which was attached to the sheath. Subsequently, I did exchange my 8-Latvian sheath into the Shuttle sheath over a 0.035 jose wire. The sheath was advanced all the way under fluoroscopy guidance to the left atrium. Subsequently, the dilator of the sheath was withdrawn out along with the wire. After that, I did load the Amplatzer occluder under continuous saline flush to the sheath. The device was advanced all the way through the sheath were I did where I did deploy initially the left atrial occluder and then I pulled back the sheath and the left atrial occluder all the way to the interatrial septum and then I deployed the right atrial occluder after that. Subsequently and after interrogation using intracardiac echocardiogram noticed that there was no residual shunt. After interrogation using intracardiac echocardiogram there was no residual shunt and were satisfied with the results. Finally that he the device was released. By the end I did right atrial angiogram. Subsequently I did exchanged the long sheath into short 8-Latvian sheath. The procedure was completed without any complication. POSTPROCEDURE MANAGEMENT: 1. Dual anti-platelet therapy for 4 weeks then Aspirin for 6 month 2. An echo in 24 hours, in 1 week, in 4 weeks, as well as in 6 months.
[2021-10-07] MEDS ORDERED: ZOLPIDEM 5 MG TAB PO SCH (21:45)
[2021-10-07 22:22] VITALS: RESP 16
[2021-10-08] MEDS: SODIUM CHLORIDE 0.9% 1,000 ML in EMPTY BAG 1 BAG IV SCH (05:12)
--- NOTE | 2021-10-08 06:45 | XR ---
EXAMINATION TYPE: XR chest 2V DATE OF EXAM: 10/08/2021 COMPARISON: Chest x-ray July 12, 2021 HISTORY: ASD/PFO placement. TECHNIQUE: Frontal and lateral views of the chest are obtained. FINDINGS: There is some chronic parenchymal change without suspicious focal air space opacity, pleur al effusion, or pneumothorax seen. The cardiac silhouette size is stable and within normal limits. Oval-shaped Density from ASD/PFO seen best on lateral view posterior inferior aspect of the cardiac s ilhouette. Metallic hardware from bilateral shoulder surgery redemonstrated. Multilevel spurring and disc space narrowing in the thoracolumbar spine.Suggestion of right basilar pulmonary nodule over the posterior eighth rib. Advise CT follow-up if lesion persists. IMPRESSION: As above.
[2021-10-08] MEDS ORDERED: ASPIRIN 325 MG TAB PO SCH (09:00)
[2021-10-08] MEDS ORDERED: CLOPIDOGREL 75 MG TAB PO SCH (09:00)
[2021-10-08 09:02] VITALS: BP 125/76; PULSE 61; TEMP 97.7
--- NOTE | 2021-10-08 12:53 | ECHOF ---
Referral Reason:Post ASD/PFO Insertion MEASUREMENTS -------- HEIGHT: 152.4 cm WEIGHT: 97.1 kg BP: RVIDd: 3.9 cm (< 3.3) IVSd: 1.2 cm (0.6 - 1.1) LVIDd: 5.0 cm (3.9 - 5.3) LVPWd: 1.2 cm (0.6 - 1.1) IVSs: 1.4 cm LVIDs: 3.5 cm LVPWs: 1.4 cm LA Diam: 5.6 cm (2.7 - 3.8) LAESV Index (A-L): 55.74 ml/m Ao Diam: 2.8 cm (2.0 - 3.7) AV Cusp: 1.9 cm (1.5 - 2.6) LA Diam: 5.6 cm (2.7 - 3.8) MV EXCURSION: 19.913 mm (> 18.000) MV EF SLOPE: 83 mm/s (70 - 150) EPSS: 1.1 cm MV E Steve: 0.59 m/s MV DecT: 233 ms MV A Steve: 0.71 m/s MV E/A Ratio: 0.83 RAP: 5.00 mmHg RVSP: 29.66 mmHg FINDINGS -------- Sinus rhythm. Echo done to Eval PFO/ASD closure done 10/07/21. The left ventricular size is normal. Left ventricular wall thickness is normal. Overall left vent ricular systolic function is low-normal with, an EF between 50 - 55 %. The right ventricle is normal in size. LA is severely dilated >40 ml/m2 The right atrial size is normal. There is an interatrial closure device in place without evidence of shunt. The aortic valve is trileaflet, and appears structurally normal. No aortic stenosis or regurgitation. Mild mitral regurgitation is present. Mild tricuspid regurgitation present. Right ventricular systolic pressure is normal at < 35 mmHg. There is no pulmonic regurgitation present. There is no pericardial effusion. CONCLUSIONS -------- 1. Echo done to Eval PFO/ASD closure done 10/07/21. 2. The left ventricular size is normal. 3. Left ventricular wall thickness is normal. 4. Overall left ventricular systolic function is low-normal with, an EF between 50 - 55 %. 5. The right ventricle is normal in size. 6. LA is severely dilated >40 ml/m2 7. The right atrial size is normal. 8. There is an interatrial closure device in place without evidence of shunt. 9. The aortic valve is trileaflet, and appears structurally normal. No aortic stenosis or regurgitati on. 10. Mild mitral regurgitation is present. 11. Mild tricuspid regurgitation present. 12. There is no pulmonic regurgitation present. 13. There is no pericardial effusion. [employer]: Leatha Lawson RDCS
--- NOTE | 2021-10-09 10:52 | P.DS ---
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 He was seen this morning. The right groin is soft and nontender and without any bruises. An echocardiogram was performed on the day of the discharge and revealed stable device without any residual shunt. The patient is going to be discharged home on dual antiplatelet therapy and he will be seen in the office in a week Plan - Discharge Summary Discharge Rx Participant: No New Discharge Prescriptions: New Clopidogrel Bisulfate [Plavix] 75 mg PO DAILY #90 tab Continue atenoloL [Tenormin] 50 mg PO DAILY Zolpidem [Ambien] 10 mg PO HS Tamsulosin HCl [Flomax] 0.4 mg PO DAILY Oxybutynin Chloride [Ditropan XL] 15 mg PO DAILY Montelukast [Singulair] 10 mg PO DAILY Meloxicam [Mobic] 15 mg PO DAILY Aspirin 325 mg PO DAILY Omeprazole 20 mg PO DAILY Levothyroxine Sodium [Levoxyl] 100 mcg PO DAILY Finasteride [Proscar] 5 mg PO DAILY calcitrioL [Rocaltrol] 0.5 mcg PO DAILY Albuterol Nebulized [Ventolin Nebulized] 2.5 mg INHALATION Q6H PRN PRN Reason: Shortness Of Breath amLODIPine [Norvasc] 10 mg PO DAILY Discharge Medication List Aspirin 325 mg PO DAILY 03/13/15 [History] Meloxicam [Mobic] 15 mg PO DAILY 03/13/15 [History] Montelukast [Singulair] 10 mg PO DAILY 03/13/15 [History] Oxybutynin Chloride [Ditropan XL] 15 mg PO DAILY 03/13/15 [History] Tamsulosin HCl [Flomax] 0.4 mg PO DAILY 03/13/15 [History] Zolpidem [Ambien] 10 mg PO HS 03/13/15 [History] atenoloL [Tenormin] 50 mg PO DAILY 03/13/15 [History] Finasteride [Proscar] 5 mg PO DAILY 03/06/18 [History] Levothyroxine Sodium [Levoxyl] 100 mcg PO DAILY 03/06/18 [History] Omeprazole 20 mg PO DAILY 03/06/18 [History] calcitrioL [Rocaltrol] 0.5 mcg PO DAILY 03/06/18 [History] Albuterol Nebulized [Ventolin Nebulized] 2.5 mg INHALATION Q6H PRN 09/08/21 [History] amLODIPine [Norvasc] 10 mg PO DAILY 09/08/21 [History] Clopidogrel Bisulfate [Plavix] 75 mg PO DAILY #90 tab 10/08/21 [Rx] Follow up Appointment(s)/Referral(s): Mario Mai MD [STAFF PHYSICIAN] - 10/10/21 2:00 pm (1 Week Visit: 10/10/21 at 2:00pm at Main Office 1 Month Visit: 11/04/21 at 4:30pm at Main Office 6 Month Visit: 04/04/22 at 2:45pm at [facility] Office 1 Year Visit: 10/06/22 at 2:00pm at Main Office) Patient Instructions/Handouts: Procedural Sedation (ED), Patent For[place] (DC) Discharge Disposition: HOME SELF-CARE
== END 2021-10-08 12:07 | disposition home or self-care (01) ==
LOC: CATHCVL 12:48 → 3SCARD 15:37 → CATHCVL 10-08 12:07
PROVIDERS: ATTEND Internal Medicine Interventional Cardiology
DX: Q21.1 Atrial septal defect (principal); I48.0 Paroxysmal atrial fibrillation; Z82.49 Family history of ischemic heart disease and other diseases of the circulatory system; Z91.041 Radiographic dye allergy status; I10 Essential (primary) hypertension; I25.10 Atherosclerotic heart disease of native coronary artery without angina pectoris; Z20.822 Contact with and (suspected) exposure to COVID-19; Z79.1 Long term (current) use of non-steroidal anti-inflammatories (NSAID); Z79.82 Long term (current) use of aspirin; Z79.890 Hormone replacement therapy; Z79.899 Other long term (current) drug therapy
CPT/HCPCS: 93306; 93580; 93662; 86900; 86901; 80048; 85025; 86850; 87635; 71046; C1769 ×5; C1894 ×2; C1817; C1760; C1759; J2250; J0690; J2001; J3010; J1644; Q9967